=== PATIENT | female | born 1965 | race Caucasian/White ===

== ENCOUNTER → 2021-01-20 | Outpatient (CLI) | payer MEDICARE, OTHER ==
[2021-01-20 13:10] VITALS: BP 122/78; PULSE 55; RESP 16; TEMP 97.6
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
== END ==
LOC: PNWHC3 12:52
PROVIDERS: ATTEND Anesthesiology
DX: M54.5 Low back pain (principal); H91.90 Unspecified hearing loss, unspecified ear
CPT/HCPCS: 99202

== ENCOUNTER 2021-02-05 10:21 | Day surgery (SDC) | payer MEDICARE, OTHER ==
[2021-02-04 12:04] VITALS: BMI 33.1
[~2021-02-05 10:21] MED LIST: LACTATED RINGERS 1,000 ML IV SCH
[2021-02-05 10:54] VITALS: RESP 16; TEMP 96.9
[2021-02-05] MEDS ORDERED: methylPREDNISolone ACETATE 40 MG/ML 1 ML VIAL ONE (11:41)
[2021-02-05] MEDS ORDERED: fentaNYL (PF) 50 MCG/ML 2 ML AMP ONE (11:41)
[2021-02-05] MEDS ORDERED: ROPIVACAINE 5MG/ML 20ML VIAL ONE (11:41)
[2021-02-05] MEDS ORDERED: MIDAZOLAM 2 MG/2 ML VIAL ONE (11:41)
--- NOTE | 2021-02-05 12:03 | P.PCN ---
Date of Procedure: 02/05/21 Procedure(s) Performed: PREOPERATIVE DIAGNOSIS : 1- Lumbar spondylosis with Facet Arthropathy without myelopathy . 2- Lumber degenerative disc disease POSTOPERATIVE DIAGNOSIS: 1- Lumbar spondylosis with Facet Arthropathy without myelopathy . 2- Lumber degenerative disc disease PROCEDURE: Diagnostic bilateral L3 , L4 , and L5 medial branch block under fluoroscopy guidance(fluoroscopy images available in the radiology Department ) ( To target the facet joint between bilateral L4-5 , and L5-S1 ) ANESTHESI: monitered anesthesia care as per anesthesia department. EBL: Minimal COMPLICATION: None PROCEDURE INDICATION: Chronic low back pain secondary to Facet arthropathy unresponsive to conservative treatment. PROCEDURE DESCRIPTION: the patient was seen and identified in the preop holding area , risks and benefits and possible complications of the procedure and alternative were discussed with the patient, and the patient agreed to proceed with the procedure and signed the consent and vital signs monitored during the procedure and fluoroscopy was used to maximize the benefit and accuracy of the needle placement, and sedation was given to decrease patient anxiety, patient was taken to the procedure room and placed in prone position vital signs monitored in the back prepped with chlorhexidine X3 then under strict sterile technique using a right oblique fluoroscopy ,the junction of the transverse process and the superior articulating process of the right L3 , L4 , and L5 vertebra which corresponding to the fluoroscopy image of the eye of the Rehan dog on the block side for the medial branches and subsequently , after local infiltration of skin and subcu tissuies with Ropivacaine 0.5 % , one mL at each level ,then 22-gauge Quincke-type needles , 3 needle was used , each one of them placed at the junction of the base of the transverse process and the superior articular process at the appropriate level, and the needle was advanced until the periosteum contacted, needle placement confirmed with AP oblique and lateral view and after appropriate needle placement confirmed, and after negative aspiration for heme and CSF and there was no paresthesia 1-1/2 mL of Ropivacaine 0.5% mixed with 20 mg Depo-Medrol , then half mL injected at each level after negative aspiration the needle subsequently removed and the same procedure repeated for the left side at left side at L3 , L4 and L5 levels. At the end of the procedure and the needles removed and a bandage applied after the skin was cleaned the cleaning solution patient taken to recovery room in stable condition and monitors in the recovery room for 20-30 minutes and discharged home in stable condition after discharge criteria met and patient will follow up with the pain clinic in 2-4 weeks
[2021-02-05] MEDS ORDERED: IV FLUID CONTINUATION 500 ML IV ONE (12:07)
[2021-02-05 12:27] VITALS: BP 116/61; PULSE 61
--- NOTE | 2021-02-05 12:47 | FL ---
EXAMINATION TYPE: FL guided pain mgmt statistic DATE OF EXAM: 02/05/2021 CLINICAL HISTORY: Low back pain. TECHNIQUE: Fluoroscopy. COMPARISON: None. FINDINGS: Fluoroscopic guidance was provided during pain relief procedure performed by Dr. Sneed . A total of 11 seconds of fluoroscopic time was utilized during the procedure and 4 spot images are acquired. Images acquired shows needle localization at several levels in the lumbar spine. IMPRESSION: As Above.
== END 2021-02-05 12:40 | disposition home or self-care (01) ==
LOC: ORPAIN 10:21
PROVIDERS: ATTEND Specialist
DX: G89.29 Other chronic pain (principal); M47.816 Spondylosis without myelopathy or radiculopathy, lumbar region; M51.36 Other intervertebral disc degeneration, lumbar region; H91.90 Unspecified hearing loss, unspecified ear; I10 Essential (primary) hypertension; E78.5 Hyperlipidemia, unspecified; Z79.82 Long term (current) use of aspirin; Z79.899 Other long term (current) drug therapy
CPT/HCPCS: 64493; 64494; J2250; J1030; J3010; J2795

== ENCOUNTER 2021-02-26 11:06 | Day surgery (SDC) | payer MEDICARE, OTHER ==
[2021-02-25 12:11] VITALS: BMI 32.8
[2021-02-26 11:27] VITALS: TEMP 97
[2021-02-26] MEDS ORDERED: LACTATED RINGERS 1,000 ML IV ONE (11:32)
[2021-02-26] MEDS ORDERED: fentaNYL (PF) 50 MCG/ML 2 ML AMP ONE (11:52)
[2021-02-26] MEDS ORDERED: IOPAMIDOL M200 10 ML VIAL ONE (11:52)
[2021-02-26] MEDS ORDERED: ROPIVACAINE 5MG/ML 20ML VIAL ONE (11:52)
[2021-02-26] MEDS ORDERED: MIDAZOLAM 2 MG/2 ML VIAL ONE (11:52)
[2021-02-26] MEDS ORDERED: TRIAMCINOLONE ACETONIDE 40 MG/ML 1 ML VIAL ONE (11:52)
--- NOTE | 2021-02-26 12:09 | P.PCN ---
Date of Procedure: 02/26/21 Description of Procedure: PREOPERATIVE DIAGNOSIS : 1- Lumbar spondylosis with Facet Arthropathy without myelopathy . 2- Lumber degenerative disc disease POSTOPERATIVE DIAGNOSIS: 1- Lumbar spondylosis with Facet Arthropathy without myelopathy . 2- Lumber degenerative disc disease PROCEDURE: #2 Diagnostic bilateral L3 , L4 , and L5 medial branch block under fluoroscopy guidance(fluoroscopy images available in the radiology Department ) ( To target the facet joint between bilateral L4-5 , and L5-S1 ) ANESTHESI: monitered anesthesia care as per anesthesia department. EBL: Minimal COMPLICATION: None PROCEDURE INDICATION: Chronic low back pain secondary to Facet arthropathy unresponsive to conservative treatment. PROCEDURE DESCRIPTION: the patient was seen and identified in the preop holding area , risks and benefits and possible complications of the procedure and alternative were discussed with the patient, and the patient agreed to proceed with the procedure and signed the consent and vital signs monitored during the procedure and fluoroscopy was used to maximize the benefit and accuracy of the needle placement, and sedation was given to decrease patient anxiety, patient was taken to the procedure room and placed in prone position vital signs monitored in the back prepped with chlorhexidine X3 then under strict sterile technique using a right oblique fluoroscopy ,the junction of the transverse process and the superior articulating process of the right L3 , L4 , and L5 vertebra which corresponding to the fluoroscopy image of the eye of the Rehan dog on the block side for the medial branches and subsequently , after local infiltration of skin and subcu tissuies with lidocaine 1 % , one mL at each level ,then 25-gauge Quincke-type needles , 3 needle was used , each one of them placed at the junction of the base of the transverse process and the superior articular process at the appropriate level, and the needle was advanced until the periosteum contacted, needle placement confirmed with AP oblique and lateral view and after appropriate needle placement confirmed, and after negative aspiration for heme and CSF and there was no paresthesia 1-1/2 mL of Ropivacaine 0.5% mixed with 20 mg Depo-Medrol , then half mL injected at each level after negative aspiration the needle subsequently removed and the same procedure repeated for the left side at left side at L3 , L4 and L5 levels. At the end of the procedure and the needles removed and a bandage applied after the skin was cleaned the cleaning solution patient taken to recovery room in stable condition and monitors in the recovery room for 20-30 minutes and discharged home in stable condition after discharge criteria met and patient will follow up with the pain clinic in 2-4 weeks
[2021-02-26] MEDS ORDERED: IV FLUID CONTINUATION 1,000 ML IV ONE (12:13)
[2021-02-26 12:31] VITALS: BP 102/55; PULSE 50; RESP 16
--- NOTE | 2021-02-26 12:36 | FL ---
Fluoroscopy HISTORY: Pain 9 seconds fluoroscopy time supplied to the referring clinician. 3 intraoperative C-arm images docume nt the procedure. See dictated report from anesthesia.
== END 2021-02-26 12:55 | disposition home or self-care (01) ==
LOC: ORPAIN 11:06
PROVIDERS: ATTEND Anesthesiology
DX: G89.29 Other chronic pain (principal); M47.816 Spondylosis without myelopathy or radiculopathy, lumbar region; Z79.82 Long term (current) use of aspirin; Z79.899 Other long term (current) drug therapy
CPT/HCPCS: 64493; 64494; J2250; J3301; J3010; Q9966; J2795

== ENCOUNTER → 2021-03-17 | Outpatient (CLI) | payer MEDICARE, OTHER ==
[2021-03-17 10:58] VITALS: BP 111/64; PULSE 60; RESP 16; TEMP 97.6
--- NOTE | 2021-03-17 11:12 | P.PN ---
Subjective Progress Note Date: 03/17/21 This is a 56-year-old lady with history of axial chronic low back pain with no radiation to the lower extremities and no paresthesia in the lower extremities. The patient received 2 lumbar medial branch diagnostic blocks which gave her 50% of pain relief however she felt this improvement one week after the procedure and not immediately after. Her pain is mostly in the lumbar sacral junction bilaterally. Patient denies new-onset weakness, bowel/bladder incontinence, or any other signs or symptoms of cauda equina syndrome. There are no signs of acute intoxication, and no indications of medication diversion or overuse. Of note the interview was conducted through an official court interpreter due to the patient's history of difficulty hearing. In addition to above, 13-point review of systems is also negative for chest pain, shortness of breath, changes in vision, changes in hearing, new onset weakness, abdominal pain, diarrhea, extreme fatigue, malaise, fever, skin changes, homicidal or suicidal ideation, or bowel or bladder incontinence. Vital Signs: Reviewed in EMR Gen: AAOx3, NAD HEENT: PERRLA,hearing grossly normal Pulm: resp unlabored Neck: supple, trachea midline Neuro exam of the lower extremities: Normal muscle strength bilaterally Straight leg raising test: Tulio's test: Negative bilaterally Range of motion of the lumbar spine: Facet loading test: Significant tenderness around the sacroiliac joints bilaterally Neuro: CN II-XII grossly intact, Imaging: Reviewed in EMR/chart Assessment: Lumbar spondylosis without myelopathy Possible bilateral sacroiliitis Deafness Plan: 1. Explanation: When patients on opioids, opioid and psychological risk scores were reviewed. Diagnoses, prognoses, and multiple treatment options including but not limited to physical therapy, interventional therapies, adjuvant medical therapies, narcotic medication therapies, and surgery were discussed with the patient and all questions were answered to the patient's satisfaction. 2. Opioid agreement:When patients are prescribed opoids through our clinic, o pioid agreement is signed with the patient and the patient is warned not to use opioids while driving or before driving and not to combine opioids with benzodiazepines or alcohol. 3. Counseling: When patient is smoking or obese, the patient was counseled extensively on SMOKING CESSATION, BODY MASS INDEX, EXERCISE. Specifically, the patient was instructed regarding the importance of smoking cessation, obesity, and exercise in the context of both chronic pain and overall health. 4. Procedures: The patient failed to respond to the diagnostic lumbar medial branch block. Eventhough that Tulio's test is negative bilaterally however the significant tenderness at the sacroiliac joints makes proceeding with a diagnostic sacroiliac joint steroid injection feasible. 5. Consultations: None 6. Investigations: None 7. Medications: None prescribed 8. Disposition: Proceed with the above-mentioned procedure as soon as possible 9. Maps were reviewed and were appropriate. Objective - Vital Signs Vital signs: Vital Signs Temp 97.6 F 03/17/21 10:55 Pulse 60 03/17/21 10:55 Resp 16 03/17/21 10:55 BP 111/64 03/17/21 10:55 Pulse Ox 96 03/17/21 10:55
== END | disposition home or self-care (01) ==
LOC: PNWHC3 10:07
PROVIDERS: ATTEND Anesthesiology
DX: M47.896 Other spondylosis, lumbar region (principal); H91.90 Unspecified hearing loss, unspecified ear
CPT/HCPCS: 99211

== ENCOUNTER 2021-04-15 10:04 | Day surgery (SDC) | payer MEDICARE, OTHER ==
[2021-04-12 15:04] VITALS: BMI 31.8
[2021-04-15 10:28] VITALS: RESP 16; TEMP 97.2
[2021-04-15] MEDS ORDERED: LACTATED RINGERS 1,000 ML IV ONE (10:35)
[2021-04-15] MEDS ORDERED: ROPIVACAINE 5MG/ML 20ML VIAL ONE (10:40)
[2021-04-15] MEDS ORDERED: MIDAZOLAM 2 MG/2 ML VIAL ONE (10:40)
[2021-04-15] MEDS ORDERED: IOPAMIDOL M200 10 ML VIAL ONE (10:40)
[2021-04-15] MEDS ORDERED: fentaNYL (PF) 50 MCG/ML 2 ML AMP ONE (10:40)
[2021-04-15] MEDS ORDERED: TRIAMCINOLONE ACETONIDE 40 MG/ML 1 ML VIAL ONE (10:40)
[2021-04-15] MEDS ORDERED: LIDOCAINE 1% INJ 10MG/ML (20 ML MDV) ONE (10:40)
--- NOTE | 2021-04-15 10:52 | P.PCN ---
Date of Procedure: 04/15/21 Description of Procedure: Preoperative diagnoses: bilateral sacroilitis Postoperative diagnoses: bilateral sacroilitis. Procedure: bilateral sacroiliac joint steroid injection under fluoroscopic guidance. Surgeon: Sky Goldberg MD Anesthesia: [2 mL of 1% lidocaine and moderate sedation per hospital guidelines], sedation time 8 min Fluoroscopy was used for the procedure and fluoroscopic images were saved to the radiology portion of the patient's chart. EBL: None Procedure indication: The patient had a history of severe chronic low back pain, diagnosed with sacroiliitis unresponsive to conservative treatment. Procedure description: The patient was seen and identified in the preoperative holding area, risks and benefits and alternative of the procedure and possible complications discussed with the patient, and patient agreed with the preceding, patient signed the consent, an IV was started, and vital signs were monitored and were stable throughout the procedure, patient was placed in the prone position on table and the lumbosacral area was prepped and draped with a sterile fashion, vital signs were closely monitored during the procedure, the fluoroscopy camera was placed in the contralateral oblique view on the bilateral sacroiliac joint and the lower part of the joint was identified . Then the skin and subcutaneous tissue was anesthetized using 2 mL of 1% lidocaine then a 22- gauge Quincke-type spinal needle advanced slowly under fluoroscopy and placed in the posterior and inferior border of the right sacroiliac joint, placement confirmed with AP and lateral view, and after appropriate needle placement confirmed and after negative aspiration for heme, 1 mL of Isovue 200 was injected revealing intra-articular spread. Then a solution consisting of 2 ml of ropivacaine 0.5% and 20 mg of Kenalog injected after negative aspiration, no paresthesia during the injection, no resistance to injection, and the needle was removed. The procedure was then repeated on the left side. Total of 40 mg of Kenalog was used for the procedure. Patient tolerated the procedure well without any complication. The patient was returned to supine position after the back was cleaned and a Band-Aid applied, the patient was transported to recovery room in stable condition and monitored for 30 minutes before being discharged home. The patient will follow up with the pain clinic in a few weeks
[2021-04-15] MEDS ORDERED: IV FLUID CONTINUATION 1,000 ML IV ONE (10:59)
[2021-04-15 11:16] VITALS: BP 105/61; PULSE 52
--- NOTE | 2021-04-15 13:02 | FL ---
EXAMINATION TYPE: FL guided pain mgmt statistic DATE OF EXAM: 04/15/2021 FLUOROSCOPY Fluoroscopy time of 8 seconds was used during bilateral SI joint injection. 2 image/s document/s the procedure.
== END 2021-04-15 11:44 | disposition home or self-care (01) ==
LOC: ORPAIN 10:04
PROVIDERS: ATTEND Anesthesiology
DX: G89.29 Other chronic pain (principal); M46.1 Sacroiliitis, not elsewhere classified; M54.5 Low back pain
CPT/HCPCS: J2250; J3301; J2001 ×2; J3010; Q9966; J2795; G0260

== ENCOUNTER → 2021-05-12 | Outpatient (CLI) | payer MEDICARE, OTHER ==
[2021-05-12 10:50] VITALS: BP 111/63; PULSE 58; RESP 18
--- NOTE | 2021-05-12 11:02 | P.PN ---
Subjective Progress Note Date: 05/12/21 Assessment this is a follow-up visit for this 56 years old female with a chronic history of severe low back pain, is diagnosed with lumbar spondylosis with lumbar facet arthropathy and bilateral sacroiliitis, history we have done bilateral medial branch block lumbar area she reported that she had 50% impro vement of her low back pain for short-term only, for this reason we did not do RFA of the medial branch, recently we have done, bilateral sacroiliac joint steroid injection she reported that she had only short-term benefit, continued to have severe axial low back pain which is interfered with her quality of life, interfering with activity of daily livings, patient tried physical therapy in the past without any significant improvement and she tried chiropractics without any significant improvement, he denies any motor or sensory deficit (the interview was conducted with the publication designer ,VIA video conference ) Objective - Vital Signs Vital signs: Vital Signs Temp Pulse 58 L 05/12/21 10:44 Resp 18 05/12/21 10:44 BP 111/63 05/12/21 10:44 Pulse Ox 97 05/12/21 10:44 Intake & Output 05/11/21 05/12/21 05/12/21 18:59 06:59 18:59 Weight 69.492 kg - Exam Physical Examinations : -Constitutiona : Cooperative , not in acute distress . -HEENT : nech : supple , no Lymphadenopathy , normal thyroid size . : eyes : no ptosis , no icterus, no photophobia . - neurologic : Cranial nerve II to XII intact , no focal neurological deffecit . -psychatric : alert , oriented X 3 , appropriate affect , intact judgment and insight . -Lymphatic : no Lymphadenopathy . - musculoskeltal : Lumber spine moter stegnth lower extremities ,thigh and legs 5/5 Right side , 5/5 Left side deep tendon reflexes : normal Knee Jerk , normal ankle Jerk lumber facet Loading Test =positive Right , positive Left Range of motion of the lumbar spine Flexion 30 degrees, extension 10 degrees strait leg raising test = negative bilaterally Fabere test= negative bilaterally . Sever tenderness over the Sacroiliac joint on the Right , and Left sides Gaenslen test= positive right ,and positive left . Seated flexion test= positive right ,and positive Left . Distraction test= positive bilaterally Sacroiliac compression test= positive bilaterally Assessment and Plan Plan: Assessment and plan=1-Lumbar spondylosis with lumbar facet arthropathy without myelopathy. 2-bilateral sacroiliitis. 3-Lumbar degenerative disc disease. Patient had 50% improvement of low back pain after diagnostic medial branch block for this reason we did not proceed with RFA She Had short-term benefit from sacroiliac joint steroid injection, she could benefit from repeat sacroiliac joint steroid injection. - PQRS measures = - Patient's medications are documented in the chart. -Tobacco use is negative and counseling.Given. -Patient's has not received pneumococcal vaccine. -Advanced care planning discussed, patient not eligible. -Opiate contract not signed. -Pain positive and follow-up visit/procedure is scheduled. -Patient's blood pressure measured [ 111/63] , and documented in the record ,and patient will follow up with the primary care. -Patient's weight was measured and body mass index [ 27 ] above the,normal limits and counseling was done. and patient instructed to follow-up with the primary care physician. -Patient was not identified as an unhealthy alcohol user Time with Patient: Less than 30
== END | disposition home or self-care (01) ==
LOC: PNWHC3 10:09
PROVIDERS: ATTEND Specialist
DX: M47.896 Other spondylosis, lumbar region (principal); M46.96 Unspecified inflammatory spondylopathy, lumbar region; M51.36 Other intervertebral disc degeneration, lumbar region; M46.1 Sacroiliitis, not elsewhere classified
CPT/HCPCS: 99211

== ENCOUNTER 2021-06-17 11:30 | Day surgery (SDC) | payer MEDICARE, OTHER ==
[2021-06-16 11:30] VITALS: BMI 31.8
[2021-06-17 12:10] VITALS: TEMP 97
[2021-06-17] MEDS: LACTATED RINGERS 1,000 ML IV SCH ×2 (12:18→12:36)
[2021-06-17] MEDS ORDERED: fentaNYL (PF) 50 MCG/ML 2 ML AMP ONE (12:36)
[2021-06-17] MEDS ORDERED: MIDAZOLAM 2 MG/2 ML VIAL ONE (12:36)
[2021-06-17] MEDS ORDERED: ROPIVACAINE 5MG/ML 20ML VIAL ONE (12:36)
[2021-06-17] MEDS ORDERED: methylPREDNISolone ACETATE 40 MG/ML 1 ML VIAL ONE (12:36)
--- NOTE | 2021-06-17 12:48 | P.PCN ---
Date of Procedure: 06/17/21 Procedure(s) Performed: Procedure= bilateral sacroiliac joints steroid injection under fluoroscopy guidance (fluoroscopy image stored on file in the radiology Department ) Preoperative diagnosis= 1-sacroiliitis 2-lumbar degenerative disc disease 3- lumbar facet arthropathy Postoperative diagnosis=Same as preop Diagnosis . Complication = none Condition= stable Anesthesia= moderate sedation with intravenous Versed 2 mg , and fentanyl 50 micrograms . Indication for the procedure= patient complaining of low back pain , examination was positive for severe tenderness over the sacroiliac joints bilaterally and patient diagnosed with sacroiliitis, for this reason ,she was good candidate for sacroiliac joint steroid injection. Description of the procedure= procedure risk and benefits discussed with the patient, including but not limited, risk of infection and bleeding, and ALLERGIC reaction to the medication and not complete pain relief and patient agreed with the preceding patient taken to the operating room, placed in prone position or standard monitors applied to the patient then after induction of anesthesia back prepped with chlorhexidine 3 times , Then under strict sterile technique, first I did the right sacroiliac joint the which was identified under fluoroscopy guidance been local infiltration of the skin and subcu interstitial with lidocaine 1% then 22-gauge Quincke Needle advanced slowly under fluoroscopy and placed in the right sacroiliac joint needle placement confirmed with AP and oblique and lateral view and after appropriate needle placement confirmed and after negative aspiration, or heme , then Ropivacaine 0.5% 4 mL, and 40 mg of Depo-Medrol mixed together and injected in the right sacroiliac joint after negative aspiration patient tolerated the procedure well without any complication. Then the left sacroiliac joint steroid injection done under strict sterile technique local infiltration of the skin and subcu interstitial at the location of the left sacroiliac joint then a 22-gauge Quincke Needle advanced slowly under fluoroscopy time placed in the left sacroiliac joint, needle placement confirmed with AP and oblique and lateral view then after appropriate needle placement confirmed and after negative aspiration 0.5% Ropivacaine 4 mL and 40 m g of Depo-Medrol injected in the left sacroiliac joint after negative aspiration patient tolerated the procedure well that any complications and she will follow up in clinic 3 weeks
[2021-06-17] MEDS ORDERED: LACTATED RINGERS 1,000 ML IV ONE (12:59)
[2021-06-17] MEDS ORDERED: IV FLUID CONTINUATION 750 ML IV ONE (12:59)
--- NOTE | 2021-06-17 12:59 | FL ---
Fluoroscopy History: Bilateral SC Injection OCCIPITAL NEURALGIA BILATERAL SC INJECTION [address] MARROQUIN. 3 IMAGES SENT.
[2021-06-17 13:14] VITALS: BP 118/74; PULSE 51; RESP 14
== END 2021-06-17 13:24 | disposition home or self-care (01) ==
LOC: ORPAIN 11:30
PROVIDERS: ATTEND Specialist
DX: M46.1 Sacroiliitis, not elsewhere classified (principal); M51.36 Other intervertebral disc degeneration, lumbar region; M47.816 Spondylosis without myelopathy or radiculopathy, lumbar region; Z90.710 Acquired absence of both cervix and uterus
CPT/HCPCS: J2250; J1030; J3010; J2795; G0260; 99152

== ENCOUNTER → 2021-07-01 | Outpatient (CLI) | payer MEDICARE, OTHER ==
--- NOTE | 2021-07-01 10:40 | P.PAINPG ---
Subjective Progress Note Date: 07/01/21 Principal diagnosis: Lumbar back pain Ms. Han is a 56 year old pleasant female patient came to [facility] pain management clinic for follow-up. Patient described pain started many years ago. Patient had bilateral SI joint injection 2 last one was on 06/17/2021. Which helped her 60-70% pain relief for 10 days. With the help of procedure patient can able to perform her activities better. Patient described pain as aching, sharp, throbbing, type of pain. Patient rated pain 7 out of 10 in severity. Which may very her pain level from 4-8 out of 10 in severity. Lumbar back pain is not radiating to her lower extremities. Pain increases with activities, and standing, walking, sitting, bending forward, and lifting. Pain decreases with [interventional procedures. Patient tried physical therapy for lumbar back pain H was not helpful in the past. Overall patient activities- stable. Intervention procedures helping to some extent. Because of the pain patient is feeling lack of sleep and interest and energy sometimes. Denied any bowel or bladder problems. Patient denies any adverse effects to medications. Patient denied any suicidal or homicidal ideations intent or plan. At this time patient also denies any auditory or visual hallucinations. There are no signs of narcotic diversion/misuse/overuse and no new-onset weakness, bowel/bladder incontinence, saddle anesthesia, or no red flag symptoms. 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 Sensation grossly intact Lower extremity: Normal strength, and decreased range of motion secondary to pain Lumbar spine: Paravertebral tenderness: positive Lumbar facet load test : positive Sacroiliac joint tenderness: Positive Thigh thrust test: Positive SI joint compression test: Positive Fabere test: Positive Multiple trigger points positive in lumbar area.] - Constitutional Constitutional Comment(s): 13 point review of symptoms negative except as mentioned in the history of present illness. Assessment and Plan Assessment: Lumbar spondylosis without myelopathy Myofascial pain syndrome Secondary to joint dysfunction History of marijuana use Plan: #1 Diagnoses, prognosis, and multiple treatment options including but not limited to physical therapy, interventional therapy, adjunct medication therapy, narcotic medication, and surgical options were discussed with the patient. And all questions were answered to the patient's satisfaction. #2 treatment plan agreement : Patient was thoroughly discussed regarding the treatment options, alternatives, and importance of exercises as tolerated. Patient clearly understood. #3 Patient was counseled on importance of regular exercise. Including diogenes chi, aerobic exercises as tolerated. Which helps for chronic pain, and overall well- being. Patient also counseled regarding importance of weight control rolling chronic pain, and overall other health issues. By altering diet habits, minimizing sugar intake, and processed foods helps in minimizing Inflammation. Also discussed with the patient regarding intermittent fasting. Patient counseled regarding smoking associated with chronic pain, worsening inflammation, and smoking effects on liver, and medication metabolism. And encouraged to stop smoking. #4 investigations: MAPS- reviewed , urine drug test- not done #5 diagnostic tests: None #6 consultation : None # 7 interventional procedures: Bilateral lumbar L4-L5, and L5-S1 medial branch block . Procedure, complications, alternatives discussed with the patient. #8 medications None from the pain clinic #9 morphine milligrams equivalents dose ( MME) per day: 0 from the pain clinic. # 10 : Patient recommended to try percussion massage device #11 disposition: scheduled to follow up with pain clinic in 6-8 weeks duration. Time with Patient: Less than 30 PQRS Measure Charge Sheet Measure #130: Documentation of Current Meds in Medical Chart: Patient's medications documented in chart Measure #226: Tobacco Use: Screen & Cessation Intervention: Pt screened for tobacco use AND intervention given Measure #111: Pneumonia Vaccination: Pneumococcal vaccine NOT administered or previously given Measure #47: Advance Care Plan: Advance care planning discussed & documented, pt chose/unable to give Measure #412: Opioid Treatment Agreement: No documentation of signed opioid treatment agreement Measure #408: Opioid Therapy Follow-up Evaluation: Patient had NO f/u eval minimum every 3 months during opioid therapy Measure #317: Preventitive Care & Scrn High Bld Press & F/U: Normal blood pressure, f/u not required Measure #128: Body Mass Index (BMI) Screening & Follow-up: BMI documented ABOVE normal parameters - f/u documented Measure #131: Pain Assessment & Follow-up: Pain positive & plan documented Measure #431: Unhealthy Alcohol Use Preventative Care & Scrn: Patient not identified as an unhealthy alcohol user PQRS Narrative: Hx Alcohol Use (MH) Yes Home Medications: Ambulatory Orders Aspirin [Adult Low Dose Aspirin EC] 81 mg PO DAILY 01/20/21 Atorvastatin [Lipitor] 20 mg PO HS 01/20/21 Cetirizine HCl 10 mg PO DAILY 01/20/21 Escitalopram [Lexapro] 20 mg PO HS 01/20/21 QUEtiapine [SEROquel] 75 mg PO HS 01/20/21 busPIRone HCL [Buspar] 30 mg PO BID 01/20/21 traZODone HCL 100 mg PO HS 01/20/21 Estradiol 0.5 mg PO DAILY 02/25/21 Controlled Substance Measures - Controlled Substance Measures Is patient prescribed a controlled substance at discharge?: No
[2021-07-01 11:51] VITALS: BP 107/54; PULSE 59; RESP 18; TEMP 97.9
== END | disposition home or self-care (01) ==
LOC: PNWHC3 10:03
DX: M47.816 Spondylosis without myelopathy or radiculopathy, lumbar region (principal); M79.18 Myalgia, other site
CPT/HCPCS: 99211

== ENCOUNTER → 2021-08-17 | Day surgery (SDC) | payer MEDICARE, OTHER ==
[2021-08-10 11:59] VITALS: BMI 31.8
[~2021-08-17] MED LIST changes: +IV FLUID CONTINUATION 1,000 ML IV ONE; +LIDOCAINE 1% (10MG/ML) FOR IV START INTRADERMA ONE; +MIDAZOLAM 2 MG/2 ML VIAL ONE; +ROPIVACAINE 5MG/ML 20ML VIAL ONE; +TRIAMCINOLONE ACETONIDE 40 MG/ML 1 ML VIAL ONE; +fentaNYL (PF) 50 MCG/ML 2 ML AMP ONE
[2021-08-17 11:58] VITALS: RESP 16; TEMP 96.8
--- NOTE | 2021-08-17 12:27 | P.PCN ---
Date of Procedure: 08/17/21 Description of Procedure: Pre- and Post-operative Diagnosis: Lumbar facet arthropathy, and lumbar spondylosis without myelopathy. Procedure: #1 Diagnostic Medial Branch Block at bilateral Lumbar 4/5 and #1 diagnostic dorsal ramus block at Lumbar 5/ sacral ala levels (total 4 levels) Surgeon: Tiffanie Yepez Anesthesia: Local: 1% Lidocaine, IV sedation : Versed and fentanyl. Complications: None EBL: None Specimen removed: None Fluoroscopic image: Saved to patient electronic medical records. Indications for Procedure: The patient is well known to pain clinic for his chronic low back pain management. The lumbar facet loading test was positive with a clinical diagnosis of lumbar facet arthropathy. Failed with conservative therapy. Came here for interventional help for better pain relief. Procedure and Findings: The patient was seen and examined. The written informed consent was obtained after explaining the risks, benefits and alternatives of the procedure to the patient. The patient was brought to the procedure room and was placed in the prone position on the operating table table. A pillow was placed under the abdomen to reduce lumbar lordosis. Standard anesthesia monitoring was done through out the procedure. The skin preparation was done with ChloraPrep, and draping was done in usual sterile fashion. Sterile technique was observed throughout the procedure. Under fluoroscopic guidance, right the Lumbar 4, 5 and Sacral ala levels were identified in the AP view. For lumbar L4, and L5 levels the targeting area of superior articular process, and close to the most medial and superior aspect of transverse process identified, marked. 1ml of 1% Lidocaine was used with a 25 gauge needle to achieve adequate local anesthesia of the skin and subcutaneous tissue at each level. A 22 gauge 3.5 inch spinal needle was placed and advanced targeting area which was close to the most medial and superior aspect of the transverse process. For Lumbar 5/ sacral ala level, fluoroscope was used in the anteroposterior view, and the needle tip was placed at the superior and most medial part of sacral ala close to the superior articular process. A bony contact was obtained and needle tip position was confirmed at anteroposterior view. No paresthesia was noted. A negative aspiration was confirmed. 1 ml solution per level was injected, the block solution containing 5 ml of 0.5% ropivacaine preservative-free solution mixed with 40 MG of Kenalog. The needles were removed intact. Entire procedure repeated on the left side. Lumbar area was cleaned and bandages were applied. Disposition : The patient tolerated the procedure very well. The patient was transferred to the recovery room and remained stable until discharged home. The patient was given detailed discharge instructions for infection, bleeding, and increased pain at the injection site, and was advised to seek immediate medical attention should significant side effects develop. The patient will be scheduled with Pain Clinic within 4 weeks for repeat procedure if it's helpful.
--- NOTE | 2021-08-17 12:50 | FL ---
EXAMINATION TYPE: FL guided pain mgmt statistic DATE OF EXAM: 08/17/2021 FLUOROSCOPY Fluoroscopy time of 5 seconds was used during bilateral lumbar facet block. 2 image/s document/s the procedure.
[2021-08-17 12:51] VITALS: BP 117/74; PULSE 56
== END ==
LOC: ORPAIN 11:06
DX: G89.29 Other chronic pain (principal); M47.816 Spondylosis without myelopathy or radiculopathy, lumbar region; Z98.890 Other specified postprocedural states; Z78.0 Asymptomatic menopausal state

== ENCOUNTER → 2021-09-13 | Outpatient (CLI) | payer MEDICARE, OTHER ==
[2021-09-13 11:05] VITALS: BP 108/55; PULSE 57; RESP 18
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
== END | disposition home or self-care (01) ==
LOC: PNWHC3 09:29
PROVIDERS: ATTEND Physician Assistant Medical
DX: M47.896 Other spondylosis, lumbar region (principal)
CPT/HCPCS: 99211

== ENCOUNTER → 2021-10-21 | Outpatient (CLI) | payer MEDICARE, OTHER ==
--- NOTE | 2021-10-21 11:43 | P.PN ---
Subjective Progress Note Date: 10/21/21 Principal diagnosis: A 56 yr old female with a [employer] a history of severe and chronic low back pain secondary to lumbar degenerative disc diseases and lumbar spondylosis with facet arthropathy presents today for evaluation status post facet block the medial branches bilateral L4-L5, L5-S1 #2. Patient states she had 50% pain relief for 2 days status post procedure. Pain level is currently at 5 out of 10, pressure-type sensation in the lower lumbar spine with radiation of tightness, soreness towards the upper aspect of the left hip. Pain is provoked by bending, lifting and standing for periods of 30 minutes or more. Pain is alleviated with medications, injections, physical therapy in May 2021 which was ineffective, chiropractic treatments in the past, stretching at home, repositioning and rest. Interventional pain procedures completed include bilateral SI joint injections 2, facet blocks of the medial branches bilateral L4-L5, L5-S1 2. Patient is currently on Motrin OTC Patient denies any side effects of the medication(s), denies excessive drow siness or sleepiness, denies suicidal ideation and reports that the current pain medication is helping to control the pain and improve activities of daily living. Patient denies any motor or sensory deficits. Patient denies any fever or night sweats, denies any change in the bowel movements or urination. Physical Examination: -Constitutional: Cooperative. Not in acute distress . -HEENT: Neck is supple. No lymphadenopathy. No thyromegaly. Normal thyroid size. Eyes: No ptosis , no icterus, no photophobia. ENT: No auditory deficits. Normal oropharynx. No Thrush. - Respiratory: Chest clear to auscultations bilaterally. No wheezing. No rhonchi. - Cardiovascular: Regular rate and rhythm. S1 / S2 , no S3 , no S4. - Gastrointestinal: Abdomen soft no tenderness. Bowel sounds positive in all four quadrants. No organomegaly. - Genitourinary: Deferred. - Neurologic: Cranial nerve II to XII intact. No focal neurological deficits. - Psychatric: Alert & oriented x 3. Matching mood & appropriate affect. Judgment and insight intact. - Lymphatic: No Lymphadenopathy. - Musculoskeletal: Cervical spine: Muscle bulk/ tone/ strength in the bilateral upper extremities normal. Facet loading test cervical area positive. Lumbar spine: Motor bulk/ tone/ strength lower extremities , thigh and legs : 5/5 Deep tendon reflexes : Normal Knee Jerk. Normal Ankle Jerk . Vertebral body tenderness to palpation over Lumbar Facet Loading Test positive over bilateral L4-L5, L5-S1 with jump reflex Straight Leg Raise: positive at 30 degrees right side/ left side Gaenslen's Test positive Sacral spine : Severe tenderness over the Sacroiliac joint: right side / left side Range of motion: Flexion of the lumbar spine <60 degrees Range of motion: Extension of the lumbar spine <20 degrees Gaenslen's Test positive Jaiden test: positive right side / left side Assessment and plan: Chronic low back pain secondary to lumbar degenerative disc disease , lumbar spondylosis with facet arthropathy without myelopathy Recommendation of bilateral RFA of the L4-L5, L5-S1. Admits to aspirin 81 mg use. Denies medical history of diabetes mellitus. Risks, benefits of procedure discussed and patient verbalized und erstanding with software consultant available via video. All patient questions answered MAPS reviewed and it was appropriate. I have spent 31 minutes on patient care today. Dr Sneed was available by phone for the evaluation of this patient. The time was used to review the medical records including relevant urine studies and Prescription history (MAPs), review of the available imaging, evaluation and examination of the patient, coordination of care with the medical staff and if applicable referring physicians, as well as creation of the medical record Objective - Vital Signs Vital signs: Intake & Output 10/20/21 10/21/21 10/21/21 18:59 06:59 18:59 Weight 95.254 kg PQRS Measure Charge Sheet PQRS Narrative: Hx Alcohol Use (MH) Yes Home Medications: Ambulatory Orders Aspirin [Adult Low Dose Aspirin EC] 81 mg PO DAILY 01/20/21 Atorvastatin [Lipitor] 20 mg PO HS 01/20/21 Cetirizine HCl 10 mg PO DAILY 01/20/21 Escitalopram [Lexapro] 20 mg PO HS 01/20/21 QUEtiapine [SEROquel] 75 mg PO HS 01/20/21 busPIRone HCL [Buspar] 30 mg PO BID 01/20/21 traZODone HCL 100 mg PO HS 01/20/21 Estradiol 0.5 mg PO DAILY 02/25/21
[2021-10-21 14:52] VITALS: BP 109/69; PULSE 71; RESP 18; TEMP 97.6
== END | disposition home or self-care (01) ==
LOC: PNWHC3 10:37
PROVIDERS: ATTEND Physician Assistant Medical
DX: M47.896 Other spondylosis, lumbar region (principal); M51.36 Other intervertebral disc degeneration, lumbar region
CPT/HCPCS: 99211

== ENCOUNTER → 2021-12-02 | Day surgery (SDC) | payer MEDICARE, OTHER ==
[2021-12-01 13:02] VITALS: BMI 31.8
[~2021-12-02] MED LIST changes: -LIDOCAINE 1% (10MG/ML) FOR IV START INTRADERMA ONE
[2021-12-02 11:35] VITALS: RESP 18; TEMP 97
--- NOTE | 2021-12-02 13:21 | P.PCN ---
Date of Procedure: 12/02/21 Description of Procedure: Pre- and Post-operative Diagnosis: Lumbar facet arthropathy, and lumbar spon dylosis without myelopathy. Procedure: Bilateral L4-5 radiofrequency thermocoagulation of medial branch under fluoroscopic guidance Bilateral L5-S1 dorsal ramus radiofrequency thermocoagulation under fluoroscopic guidance Surgeon: Tiffanie Yepez Anesthesia: Local: 1% Lidocaine, IV sedation : Midazolam 2 mg, +1, and fentanyl 100 micrograms. Complications: None Estimated blood loss: None. Specimen removed: None Fluoroscopic image: Saved to patient electronic medical records. Indications for Procedure: The patient is well known to pain clinic for his chronic low back pain management. The lumbar facet loading test was positive with a clinical diagnosis of lumbar facet arthropathy. Patient had marked decrease in pain after the diagnostic medial branch procedure. Came here for radiofrequency ablation for longer pain relief. PROCEDURE DESCRIPTION: The patient was seen and identified in the preoperative area. Risks, benefits, complications, and alternatives were discussed with the patient. The patient agreed to proceed with the procedure and signed the consent. IV was started. Vital signs were stable. Patient was taken to the procedure room and timeout was completed. The patient was placed in the prone position on procedure table and a pillow was placed under the abdomen to reduce lumbar lordosis. The lumbosacral area was prepped and draped in the usual sterile fashion. Critical pause was taken. Vital signs were closely monitored during the procedure. The fluoroscopic camera was placed in the anteroposterior position to identify the junction of superior articular process and its corresponding injection with its transverse process of Right side L4, L5, S1, which were anesthetized with 1% lidocaine. We used 20-gauge 100-mm curved, sharp radiofrequency cannula with 10-mm active tip for the procedure. The first cannula was guided by fluoroscopy to the S1 superior articular process and its corresponding junction with its ala. The second cannula was guided by fluoroscopy into the L5 superior articular process and its corresponding junction with its transverse process and pedicle. The third cannula was guided by fluoroscopy into the L4 SAP and its corresponding junction with its transverse process and its pedicle. After confirmation of needle tip position on oblique view,, and lateral view each site underwent motor testing at 2 Hz and 0 to 2.5 volts, and there was good motor stimulation in the back and no radicular symptoms or paresthesias. After confirmation of motor testing, 0.5 mL of block solution injected at each site . Block solution contained 4 mL of 0.5% ropivacaine preservative free mixed with 40 MG of Kenalog. At this time, each site was ablated using continuous radiofrequency mode at 80 degrees Celsius for 90 seconds at each level. At the end of the procedure, each needle was retracted approximately 1 cm and the skin was infiltrated with 0.5% ropivacaine preservative free 1 ml at each site. Skin was cleansed and bandages were applied. Entire procedure repeated on the left side. Skin was cleansed and bandages were applied. Disposition : The patient tolerated the procedure very well. The patient was transferred to the recovery room and remained stable until discharged home. The patient was given detailed discharge instructions for infection, bleeding, and increased pain at the injection site, and was advised to seek immediate medical attention should significant side effects develop. The patient will be scheduled with Pain Clinic within 4 weeks.
--- NOTE | 2021-12-02 13:45 | FL ---
EXAMINATION TYPE: FL guided pain mgmt statistic DATE OF EXAM: 12/02/2021 FLUOROSCOPY Fluoroscopy time of 10 seconds was used during pain management procedure. No image/s document/s the procedure.
[2021-12-02 13:54] VITALS: BP 90/59; PULSE 72
== END ==
LOC: ORPAIN 11:06
DX: M47.896 Other spondylosis, lumbar region (principal); M47.816 Spondylosis without myelopathy or radiculopathy, lumbar region
CPT/HCPCS: 64635; 64636; J2250; J3301; J3010; J2795; 99152

== ENCOUNTER → 2021-12-30 | Outpatient (CLI) | payer MEDICARE, OTHER ==
[2021-12-30 10:16] VITALS: BP 113/59; PULSE 60; RESP 18
--- NOTE | 2021-12-30 10:26 | P.PN ---
Subjective Progress Note Date: 12/30/21 Principal diagnosis: A 56 yr old female with father at side with a history of severe and chronic low back pain secondary to lumbar degenerative disc diseases and lumbar spondylosis with facet arthropathy presents today for evaluation status post bilateral RFA L4-L5, L5-S1. She states she expressed 80% pain relief status post procedure. Pain level is currently at 3 out of 10 in intensity, localized to the lower aspect of the lumbar spine where it meets the tailbone, sharp, shooting in character to the lower extremities. Pain is provoked by walking for periods of 15 minutes or more. Pain is alleviated with cannabis use, injections, sacralization surgery in November 2021, home stretching regimen and rest. Interventional pain procedures completed include BL SI joint injections x 4. BL RFA L3-L5 Patient is currently on DENIES Patient denies any side effects of the medication(s), denies excessive drowsiness or sleepiness, denies suicidal ideation and reports that the current pain medication is helping to control the pain and improve activities of daily living. Patient denies any motor or sensory deficits. Patient denies any fever or night sweats, denies any change in the bowel movements or urination. Physical Examination: -Constitutional: Cooperative. Not in acute distress . -HEENT: Neck is supple. No lymphadenopathy. No thyromegaly. Normal thyroid size. Eyes: No ptosis , no icterus, no photophobia. ENT: No auditory deficits. Normal oropharynx. No Thrush. - Respiratory: Chest clear to auscultations bilaterally. No wheezing. No rhonchi. - Cardiovascular: Regular rate and rhythm. S1 / S2 , no S3 , no S4. - Gastrointestinal: Abdomen soft no tenderness. Bowel sounds positive in all four quadrants. No organomegaly. - Genitourinary: Deferred. - Neurologic: Cranial nerve II to XII intact. No focal neurological deficits. - Psychatric: Alert & oriented x 3. Matching mood & appropriate affect. Judgment and insight intact. - Lymphatic: No Lymphadenopathy. - Musculoskeletal: Cervical spine: Muscle bulk/ tone/ strength in the bilateral upper extremities normal. Facet loading test cervical area positive. Lumbar spine: Motor bulk/ tone/ strength lower extremities , thigh and legs : 5/5 Deep tendon reflexes : Normal Knee Jerk. Normal Ankle Jerk . Vertebral body tenderness to palpation over L5 Lumbar Facet Loading Test positive Straight Leg Raise: positive at 30 degrees right side/ left side Gaenslen's Test positive Sacral spine : Severe tenderness over the Sacroiliac joint: right side / left side Range of motion: Flexion of the lumbar spine <60 degrees Range of motion: Extension of the lumbar spine <20 degrees Gaenslen's Test positive Jaiden test: positive right side / left side Assessment and plan: Chronic low back pain secondary to lumbar degenerative disc disease , lumbar spondylosis with facet arthropathy without myelopathy Recommendation of LESI L5-S1. May be a series of injections, up to 3 within a six-month period, for optimal pain relief. Risks, benefits of procedure discussed and patient verbalized understanding. Denies anticoagulant use or medical history of diabetes. All patient questions answered I have spent 31 minutes on patient care today. Dr Sneed was available by phone for the evaluation of this patient. The time was used to review the medical records including relevant urine studies and Prescription history (MAPs), review of the available imaging, evaluation and examination of the patient, coordination of care with the medical staff and if applicable referring physicians, as well as creation of the medical record Objective - Vital Signs Vital signs: Vital Signs Temp Pulse 60 12/30/21 10:08 Resp 18 12/30/21 10:08 BP 113/59 12/30/21 10:08 Pulse Ox 95 12/30/21 10:08 Intake & Output 12/29/21 12/30/21 12/30/21 18:59 06:59 18:59 Weight 81.647 kg PQRS Measure Charge Sheet Mode of Arrival: Ambulatory - Pain Location Lower Back Non-Pharmacological Interventions: Home Exercise, Inactivity, Stretching Pharmacological Interventions: Block, Epidural PQRS Narrative: Blood Pressure 113/59 Pain Intensity [Lower Back] 3 Scale Used Numeric (1 - 10) Hx Alcohol Use (MH) Yes Home Medications: Ambulatory Orders Aspirin [Adult Low Dose Aspirin EC] 81 mg PO DAILY 01/20/21 Atorvastatin [Lipitor] 20 mg PO HS 01/20/21 Cetirizine HCl 10 mg PO DAILY 01/20/21 Escitalopram [Lexapro] 20 mg PO HS 01/20/21 QUEtiapine [SEROquel] 75 mg PO HS 01/20/21 busPIRone HCL [Buspar] 30 mg PO BID 01/20/21 traZODone HCL 100 mg PO HS 01/20/21 Estradiol 0.5 mg PO DAILY 02/25/21
== END ==
LOC: PNWHC3 09:37
PROVIDERS: ATTEND Specialist
DX: M47.816 Spondylosis without myelopathy or radiculopathy, lumbar region (principal); M51.36 Other intervertebral disc degeneration, lumbar region; G89.29 Other chronic pain
CPT/HCPCS: 99211

== ENCOUNTER 2022-02-10 11:06 | Day surgery (SDC) | payer MEDICARE, OTHER ==
[2022-02-10] MEDS ORDERED: LACTATED RINGERS 1,000 ML IV SCH (11:26)
[2022-02-10] MEDS ORDERED: LIDOCAINE 1% (10MG/ML) FOR IV START INTRADERMA PRN (11:26)
[2022-02-10 11:37] VITALS: RESP 16; TEMP 97.5
[2022-02-10] MEDS ORDERED: methylPREDNISolone ACETATE 80 MG/ML 1 ML VIAL ONE (12:10)
[2022-02-10] MEDS ORDERED: fentaNYL (PF) 50 MCG/ML 2 ML AMP ONE (12:10)
[2022-02-10] MEDS ORDERED: IOPAMIDOL M200 10 ML VIAL ONE (12:10)
[2022-02-10] MEDS ORDERED: MIDAZOLAM 2 MG/2 ML VIAL ONE (12:10)
--- NOTE | 2022-02-10 12:21 | P.PCN ---
Date of Procedure: 02/10/22 Procedure(s) Performed: PREOPERATIVE DIAGNOSIS: 1- Lumbar Degenerative Disc Diseases 2-Lumbar spondylosis with Facet arthropathy without myelopathy POSTOPERATIVE DIAGNOSIS: Same as preop diagnosis. PROCEDURE 1. Lumbar epidural steroid injection under fluoroscopic guidance at the L5-S1 level. (Fluoroscopy imaging was available in radiology department) 2. Lumbar epidurogram. ANESTHESIA: Local with 1% lidocaine 3 ml and , moderate sedation with intravenous Versed 2 mg ,and fentanyle 100 Mcg EBL: Minimal PROCEDURE INDICATION: The patient with low back pain and radiculitis symptoms unresponsive to conservative treatment. Fluoroscopy was used to optimize visuali zation of the needle placement and to maximize safety. PROCEDURE DESCRIPTION / TECHNIQUE: The patient was seen and identified in the preoperative area. Risks, benefits, complications including but not limited to infections ,bleeding ,allergic reaction to the medications ,nerve damage and not complete pain releife , and alternatives were discussed with the patient. The patient agreed to proceed with the procedure and signed the consent. IV was started, and vital signs were stable. Patient was taken to the OR and time out was completed. The patient was placed in the prone position on procedure table and a pillow was placed under the abdomen to reduce lumbar lordosis. The lumbosacral area was prepped and draped in the usual sterile fashion.ere closely monitored during the procedure. Conscious sedation was used during the procedure to decrease patients anxiety. Vital signs was monitered during the entire procedure. Using anterior-posterior fluoroscopy, the L5-S1 interlaminar space was identified and the skin over this site was marked and then infiltrated with 1% lidocaine subcutaneously. Subsequently, a 20-gauge Tuohy epidural needle was inserted and advanced toward the epidural space using the ``Loss of resistance technique and guided by AP and lateral fluoroscopy. The correct needle position in the epidural space was verified with the injection of 2 mL of the water jennifer uble contrast dye Isovue 200 contrast and observing an excellent epidurogram with the epidural spread of the dye, after negative aspiration for blood and CSF and in the absence of paresthesias. Again after negative aspiration, a 6 ml mixture containing 80 mg of Depo-medrol , and 2 ml of preservative free Normal Saline, and 2 ml of preservative free lidocaine 1% solution was injected and a washout of epidurogram was seen. Needle was withdrawn intact, skin was cleansed, and bandages were applied. COMPLICATIONS: None DISPOSITION / PLANS: The patient was placed in a supine position and transferred to the recovery area in a stable condition for observation. There was no evidence of lower extremity motor or sensory deficit after the procedure. Patient was discharged from the recovery room after meeting discharge criteria. Home discharge instructions were given to the patient by the staff. The patient was reexamined prior to discharge. The patient will schedule a follow up in the clinic in 2-4 weeks.
--- NOTE | 2022-02-10 12:33 | FL ---
Fluoroscopy INDICATION: Pain FINDINGS: Fluoroscopy time: 1 seconds. Images obtained: 1. IMPRESSIONS: 1. Documentation of fluoroscopy.
[2022-02-10 12:44] VITALS: BP 102/68; PULSE 66
[2022-02-10] MEDS ORDERED: IV FLUID CONTINUATION 1,000 ML IV ONE (12:44)
== END 2022-02-10 12:51 | disposition home or self-care (01) ==
LOC: ORPAIN 11:06
PROVIDERS: ATTEND Specialist
DX: M51.16 Intervertebral disc disorders with radiculopathy, lumbar region (principal); M47.26 Other spondylosis with radiculopathy, lumbar region
CPT/HCPCS: 62323; J2250; J1040; J3010; Q9966

== ENCOUNTER 2022-04-21 09:55 | Day surgery (SDC) | payer MEDICARE, OTHER ==
[2022-04-20 12:12] VITALS: BMI 32.5
[~2022-04-21 09:55] MED LIST changes: -IV FLUID CONTINUATION 1,000 ML IV ONE; +LIDOCAINE 1% (10MG/ML) FOR IV START INTRADERMA PRN; -MIDAZOLAM 2 MG/2 ML VIAL ONE; -ROPIVACAINE 5MG/ML 20ML VIAL ONE; -TRIAMCINOLONE ACETONIDE 40 MG/ML 1 ML VIAL ONE; -fentaNYL (PF) 50 MCG/ML 2 ML AMP ONE
[2022-04-21 10:43] VITALS: TEMP 97
[2022-04-21] MEDS ORDERED: MIDAZOLAM 2 MG/2 ML VIAL ONE (10:57)
[2022-04-21] MEDS ORDERED: fentaNYL (PF) 50 MCG/ML 2 ML AMP ONE (10:57)
[2022-04-21] MEDS ORDERED: methylPREDNISolone ACETATE 80 MG/ML 1 ML VIAL ONE (10:57)
[2022-04-21] MEDS ORDERED: IOPAMIDOL M200 10 ML VIAL ONE (10:57)
[2022-04-21] MEDS ORDERED: LACTATED RINGERS 1,000 ML IV ONE (11:11)
--- NOTE | 2022-04-21 11:14 | P.PCN ---
Date of Procedure: 04/21/22 Description of Procedure: Procedure: 1. L5-S1 Epidural steroid injection under fluoroscopic guidance 2. Lumbar epidurogram PREOPERATIVE DIAGNOSIS: Lumbar degenerative disc disease, and Lumbar radiculopathy. POSTOPERATIVE DIAGNOSIS: Lumbar degenerative disc disease, and Lumbar radicu lopathy. SURGEON: Tiffanie Castañeda ANESTHESIA: Local with 1% lidocaine, and IV sedation : Midazolam 2 mg, and fentanyl 100 g Sedation supervision start time : 1055 sedation Supervision end time: 1106 EBL: None. Specimen removed: None Fluoroscopic image: saved to electronic medical records PROCEDURE INDICATION: The patient had history of Lumbar degenerative disc disease and Lumbar radiculopathy. Failed to conservative therapy. Presented for epidural steroid injection. PROCEDURE DESCRIPTION: The patient was seen and identified in the preoperative area. Risks, benefits, complications, and alternatives were discussed with the patient. The patient agreed to proceed with the procedure and signed the consent. IV was started, and vital signs were stable. Patient was taken to the procedure area, and time out was completed. The patient was placed in the prone position on procedure table and a pillow was placed under the abdomen to reduce lumbar lordosis. The lumbosacral area was prepped and draped in the usual sterile fashion. Critical pause was taken. Vital signs were closely monitored during the procedure. Using anterior-posterior fluoroscopy, the L5-S1 interlaminar space was identified, and skin and deeper tissues were localized with 1% lidocaine. Using anterior-posterior fluoroscopy, lateral fluoroscopy, and [id number] technique, a 20 gauge 3.5 Tuohy epidural needle entered the epidural space. After negative aspiration of CSF and blood with no paresthesias, 1 ml of [id number] contrast dye was injected and an excellent epidurogram was seen. Again after negative aspiration of CSF and blood with no paresthesias, 8 mL of block solution was injected into the epidural space. Block solution contained 80 mg of Depo-Medrol, and 7 mL of preservative-free normal saline. Needle was withdrawn intact, skin was cleansed, and bandages were applied. COMPLICATIONS: None. DISPOSITION / PLANS: The patient was placed in a supine position and transferred to the recovery area in a stable condition for observation. Patient was discharged from the recovery room after meeting discharge criteria. Home discharge instructions given to the patient by the staff. The patient was reexamined prior to discharge. The patient will schedule a follow up in the clinic in 4 weeks.
[2022-04-21] MEDS ORDERED: LACTATED RINGERS 1,000 ML IV SCH (11:15)
[2022-04-21 11:19] VITALS: RESP 15
--- NOTE | 2022-04-21 11:19 | FL ---
EXAMINATION TYPE: FL guided pain mgmt statistic DATE OF EXAM: 04/21/2022 CLINICAL HISTORY: Low back pain. TECHNIQUE: Fluoroscopy. COMPARISON: None. FINDINGS: Fluoroscopic guidance was provided during pain relief procedure performed by Dr. Sneed . A total of 2 seconds of fluoroscopic time was utilized during the procedure and two spot images ar e acquired. Images acquired shows needle localization at L5-S1 level with contrast injection from po sterior approach. IMPRESSION: As Above.
[2022-04-21 11:27] VITALS: BP 122/74; PULSE 62
== END 2022-04-21 11:41 | disposition home or self-care (01) ==
LOC: ORPAIN 09:55
DX: M51.16 Intervertebral disc disorders with radiculopathy, lumbar region (principal); E78.00 Pure hypercholesterolemia, unspecified; H91.90 Unspecified hearing loss, unspecified ear; F32.9 Major depressive disorder, single episode, unspecified
CPT/HCPCS: 62323; J2250; J1040; J3010; Q9966; 99152

== ENCOUNTER → 2022-05-30 | Outpatient (CLI) | payer MEDICARE, OTHER ==
[2022-05-30 10:48] VITALS: BP 105/61; PULSE 68; RESP 18; TEMP 97.6
--- NOTE | 2022-05-30 14:47 | P.PAINPG ---
PQRS Measure Charge Sheet Comment: A 57 yr old female w father at side with a history of severe and chronic mid to low back pain secondary to thoracolumbar degenerative disc diseases and spondylosis with facet arthropathy without myelopathy presents today for evaluation ZOYA L5-S1. Pt states she experienced 100% x 1 wk s/p procedure. Pain level is currently at 8/10 in intensity, constant, localized in lumbar spine, throbbing in character w shooting towards L/R of midline and up towards the thoracic spine. Pain is provoked by PT 2 yrs ago without relief. Pain is alleviated with sitting. Interventional pain procedures completed include ZOYA L5-S1 Patient is currently on Denies Patient denies any side effects of the medication(s), denies excessive drowsiness or sleepiness, denies suicidal ideation and reports that the current pain medication is helping to control the pain and improve activities of daily living. Patient denies any motor or sensory deficits. Patient denies any fever or night sweats, denies any change in the bowel movements or urination. Physical Examination: -Constitutional: Cooperative. Not in acute distress . - Neurologic: Cranial nerve II to XII intact. No focal neurological deficits. - Psychatric: Alert & oriented x 3. Matching mood & appropriate affect. Judgment and insight intact. - Musculoskeletal: Cervical spine: Muscle bulk/ tone/ strength in the bilateral upper extremities normal Vertebral body tenderness to palpation over Spurling test positive Distraction test positive Facet loading test positive Thoracic spine Muscle bulk / tone/ strength in the bilateral paraspinal muscles normal Vertebral body tender to palpation over BL thoracic paraspinal TTP and spasms Facet loading test positive Lumbar spine: Motor bulk/ tone/ strength lower extremities , thigh and legs : 5/5 Deep tendon reflexes : Normal Knee Jerk. Normal Ankle Jerk . Vertebral body tenderness to palpation over BL lumbar paraspinal TTP and spasms Lumbar Facet Loading Test positive Straight Leg Raise: positive at 30 degrees right side/ left side Gaenslen's Test positive Sacral spine : Severe tenderness over the Sacroiliac joint: right side / left side Range of motion: Flexion of the lumbar spine <60 degrees Range of motion: Extension of the lumbar spine <20 degrees Gaenslen's Test positive Tulio's Test positive Jaiden test: positive right side / left side Thigh Thrust Test Sacral Thrust Test Assessment and plan: Chronic mid to low back pain secondary to thoracolumbar degenerative disc disease, spondylosis with facet arthropathy without myelopathy Recommendation of BL TPIs of thoracolumbar T6 - L5. May need a series, up to every 2-3 mo , for optimal pain relief. Risks, benefits of procedure discussed and pt verbalized understanding. Admits anticoagulant use or medical history of diabetes. Protocol for discontinuation/ continuation of meds joon procedure discussed. Father at side is supportive of daughter going to chiropractic treatments w him All patient questions answered I have spent less than 30 minutes on patient care today. Dr Sneed was available by phone for the evaluation of this patient. The time was used to review the medical records including relevant urine studies and Prescription history (MAPs), review of the available imaging, evaluation and examination of the patient, coordination of care with the medical staff and if applicable referring physicians, as well as creation of the medical record PQRS Narrative: Pain Intensity [Back] 8 Hx Alcohol Use (MH) Yes Home Medications: Ambulatory Orders Aspirin [Adult Low Dose Aspirin EC] 81 mg PO DAILY 01/20/21 Atorvastatin [Lipitor] 5 mg PO HS 01/20/21 Escitalopram [Lexapro] 20 mg PO HS 01/20/21 QUEtiapine [SEROquel] 75 mg PO HS 01/20/21 busPIRone HCL [Buspar] 30 mg PO BID 01/20/21 traZODone HCL 100 mg PO HS 01/20/21 estradioL [Estradiol] 0.5 mg PO DAILY 02/25/21 Fexofenadine/Pseudoephedrine [Jocelyne-D 24 Hour Tablet] 1 tab PO DAILY 05/26/22 Controlled Substance Measures - Controlled Substance Measures Is patient prescribed a controlled substance at discharge?: No
== END | disposition home or self-care (01) ==
LOC: PNWHC3 10:11
PROVIDERS: ATTEND Specialist
DX: M47.895 Other spondylosis, thoracolumbar region (principal); M51.35 Other intervertebral disc degeneration, thoracolumbar region
CPT/HCPCS: 99211

== ENCOUNTER 2022-06-30 09:54 | Day surgery (SDC) | payer MEDICARE, OTHER ==
[2022-06-27 11:12] VITALS: BMI 33.1
[2022-06-30] MEDS ORDERED: LACTATED RINGERS 1,000 ML IV SCH (10:09)
[2022-06-30] MEDS ORDERED: LIDOCAINE 1% (10MG/ML) FOR IV START INTRADERMA PRN (10:09)
[2022-06-30 10:16] VITALS: RESP 16; TEMP 97.8
[2022-06-30] MEDS: LACTATED RINGERS 1,000 ML IV SCH ×2 (10:16→10:18)
[2022-06-30] MEDS ORDERED: TRIAMCINOLONE ACETONIDE 40 MG/ML 1 ML VIAL ONE (10:24)
[2022-06-30] MEDS ORDERED: ROPIVACAINE 5 MG/ML 20 ML AMPULE ONE (10:24)
[2022-06-30] MEDS ORDERED: fentaNYL (PF) 50 MCG/ML 2 ML AMP ONE (10:24)
[2022-06-30] MEDS ORDERED: MIDAZOLAM 2 MG/2 ML VIAL ONE (10:24)
--- NOTE | 2022-06-30 10:40 | P.PCN ---
Date of Procedure: 06/30/22 Description of Procedure: Pre and postop diagnosis: Myofascial pain syndrome Procedure: Trigger point injections X 9 Muscle group X bilateral lumbar paraspinal, bilateral iliocostalis lumborum Surgeon: Tiffanie Castañeda Anesthesia: Versed 2 mg, and fentanyl 100 g sedation Supervision start time: 06 16 Sedation supervision ended time: 1036 Complications: None Estimated blood loss: None Specimen removed: None Procedure indications: Patient had a history of myofascial pain syndrome. Patient tried conservative therapy. Came here for intervention procedure for better pain relief. Procedure description: Patient was seen and identified in the holding area risk benefits competitions alternative discussed with the patient. Patient agreed to proceed for the procedure signed the consent. Patient taken to the procedure area. Timeout was completed. A total number of 9 - trigger point area was marked with a sterile marker. After ChloraPrep used to clean the area. Critical pause was taken. Using 25-gauge 1-1/2 inch needle, Needle entered in each market site 2 mL of block solution injected at each level. The block solution containing 18 ml of 0.5% preservative-free ropivacaine with Kenlog 80 MG. Needle removed intact skin cleaned and Band-Aid applied. Patient tolerated the procedure well. Disposition: Patient discharge home after meeting the discharge criteria from the recovery. Patient scheduled to follow up with the pain clinic in 4weeks for follow-up visit.
[2022-06-30] MEDS ORDERED: LACTATED RINGERS 1,000 ML IV ONE (10:42)
[2022-06-30 10:59] VITALS: BP 104/70; PULSE 62
== END 2022-06-30 11:12 | disposition home or self-care (01) ==
LOC: ORPAIN 09:54
DX: M79.18 Myalgia, other site (principal); I10 Essential (primary) hypertension; F32.A Depression, unspecified; E78.00 Pure hypercholesterolemia, unspecified
CPT/HCPCS: 20553; 99152; J2250; J3301; J3010; J2795

== ENCOUNTER → 2022-07-21 | Outpatient (CLI) | payer MEDICARE, OTHER ==
[2022-07-21 13:13] VITALS: BP 116/72; PULSE 59; RESP 16; TEMP 98
--- NOTE | 2022-07-27 07:35 | P.PAINPG ---
PQRS Measure Charge Sheet Comment: A 57 yr old female w father and sign-specialized language instructor at side with a history of severe and chronic low back pain secondary to lumbar DDD and spondylosis with facet arthropathy without myelopathy presents today for evaluation s/p BL TPIs Lumbar spine. Pt states she experienced 50 % pain relief x 3 wks s/p procedure. In November 2021, patient underwent BL RFA L3-L5 where she admits to 80% pain relief x 6 months s/p seizure. Pain level is currently at 5 /10 in intensity, intermittent and localized in the mid to lower lumbar spine, dull/ achy in character w shooting towards the buttocks and BLEs. Pain is provoked by standing/ walking for periods of 15 min or more. Pain is alleviated with chiropractic treatments 4 sessions which provoked pain, multiple topicals without relief, laying supine and rest. Interventional pain procedures completed include BL Lumbar TPIs, BL SI x2, BL L3-L5 RFA, LESIs Patient is currently on Denies Patient denies any side effects of the medication(s), denies excessive drowsiness or sleepiness, denies suicidal ideation and reports that the current pain medication is helping to control the pain and improve activities of daily living. Patient denies any motor or sensory deficits. Patient denies any fever or night sweats, denies any change in the bowel movements or urination. Physical Examination: -Constitutional: Cooperative. Not in acute distress . - Neurologic: Cranial nerve II to XII intact. No focal neurological deficits. - Psychatric: Alert & oriented x 3. Matching mood & appropriate affect. Judgment and insight intact. - Musculoskeletal: Cervical spine: Muscle bulk/ tone/ strength in the bilateral upper extremities normal Vertebral body tenderness to palpation over Spurling test positive Distraction test positive Facet loading test positive Thoracic spine Muscle bulk / tone/ strength in the bilateral paraspinal muscles normal Vertebral body tender to palpation over Facet loading test positive Lumbar spine: Motor bulk/ tone/ strength lower extremities , thigh and legs : 5/5 Deep tendon reflexes : Normal Knee Jerk. Normal Ankle Jerk . Vertebral body tenderness to palpation over Lumbar Facet Loading Test positive TTP over BL L4-L5, L5-S1 facets Straight Leg Raise: positive at 30 degrees right side/ left side Gaenslen's Test positive Sacral spine : Severe tenderness over the Sacroiliac joint: right side / left side Range of motion: Flexion of the lumbar spine <60 degrees Range of motion: Extension of the lumbar spine <20 degrees Gaenslen's Test positive Jaiden test: positive right side / left side Thigh Thrust Test Sacral Thrust Test Assessment and plan: Chronic LBP secondary to lumbar degenerative disc disease, spondylosis with facet arthropathy without myelopathy Recommendation of BL RFA L4-L5, L5-S1. Patient exhibited optimal and sufficient pain relief with prior RFA in November 2021. Risks, benefits of procedure discussed and pt verbalized understanding. Denies anticoagulant use or medical history of diabetes. All patient questions answered I have spent less than 30 minutes on patient care today. Dr Sneed was available by phone for the evaluation of this patient. The time was used to review the medical records including relevant urine studies and Prescription history (MAPs), review of the available imaging, evaluation and examination of the patient, coordination of care with the medical staff and if applicable referring physicians, as well as creation of the medical record PQRS Narrative: Hx Alcohol Use (MH) Yes Home Medications: Ambulatory Orders Aspirin [Adult Low Dose Aspirin EC] 81 mg PO DAILY 01/20/21 Atorvastatin [Lipitor] 5 mg PO HS 01/20/21 Escitalopram [Lexapro] 20 mg PO HS 01/20/21 QUEtiapine [SEROquel] 75 mg PO HS 01/20/21 busPIRone HCL [Buspar] 30 mg PO BID 01/20/21 traZODone HCL 100 mg PO HS 01/20/21 estradioL [Estradiol] 0.5 mg PO DAILY 02/25/21 Fexofenadine/Pseudoephedrine [Jocelyne-D 24 Hour Tablet] 1 tab PO DAILY 05/26/22 Controlled Substance Measures - Controlled Substance Measures Is patient prescribed a controlled substance at discharge?: No
== END ==
LOC: PNWHC3 10:52
PROVIDERS: ATTEND Specialist
DX: M47.816 Spondylosis without myelopathy or radiculopathy, lumbar region (principal); M51.36 Other intervertebral disc degeneration, lumbar region; G89.29 Other chronic pain
CPT/HCPCS: 99211

== ENCOUNTER 2022-11-17 11:55 | Day surgery (SDC) | payer MEDICARE, OTHER ==
[2022-11-16 12:06] VITALS: BMI 32.4
[2022-11-17] MEDS ORDERED: LACTATED RINGERS 1,000 ML IV ONE (12:35)
[2022-11-17 12:36] VITALS: TEMP 97
[2022-11-17] MEDS ORDERED: fentaNYL (PF) 50 MCG/ML 2 ML AMP ONE (12:45)
[2022-11-17] MEDS ORDERED: methylPREDNISolone ACETATE 40 MG/ML 1 ML VIAL ONE (12:45)
[2022-11-17] MEDS ORDERED: MIDAZOLAM 2 MG/2 ML VIAL ONE (12:45)
[2022-11-17] MEDS ORDERED: ROPIVACAINE 5 MG/ML 30 ML VIAL ONE (12:45)
[2022-11-17] MEDS ORDERED: IV FLUID CONTINUATION 900 ML IV ONE (12:55)
--- NOTE | 2022-11-17 12:57 | P.PCN ---
Date of Procedure: 11/17/22 Procedure(s) Performed: Procedure= left iliolumbar ligament steroid injection under fluoroscopy guidance (fluoroscopy image stored on file in the radiology Department ) Preoperative diagnosis= 1-left iliolumbar ligament neuralgia 2-lumbar degenerative disc disease 3-lumbar facet arthropathy Postoperative diagnosis=. 1-left iliolumbar ligament neuralgia 2-lumbar degenerative disc disease 3-lumbar facet arthropathy Complication = none Condition= stable Anesthesia= moderate sedation with intravenous Versed 2 mg , and fentanyl 50 micrograms . Sedation start time:1246 Sedation end time :1250 Indication for the procedure= patient complaining of low back pain , examination was positive for severe tenderness over the left iliolumbar ligament and patient diagnosed with iliolumbar ligament neuralgia, for this reason she was good candidate for left iliolumbar ligament steroid injection. Description of the procedure= procedure risk and benefits discussed with the patient, including but not limited, risk of infection and bleeding, and ALLERGIC reaction to the medication and not complete pain relief and patient agreed with the preceding patient taken to the operating room, placed in prone position or standard monitors applied to the patient then after induction of anesthesia back prepped with chlorhexidine 3 times , Then under strict sterile technique, first I did the left iliolumbar ligament injection by placing a 25-gauge needle at the location of the distance between the sacral alar on the left side and the L5 transverse processes on the left side and in the middle of the distance 25-gauge needle placed under fluoroscopy guidance and needle placement confirmed with AP and lateral view and after negative aspiration for heme and there was no paresthesia during the injection, total of 5 ML of ropivacaine 0.5% mixed with 40 mg of Depo-Medrol injected at the location of the left iliolumbar ligament patient tolerated the procedure well without any complications, she will follow up in the pain clinic in few weeks
[2022-11-17 13:03] VITALS: PULSE 56; RESP 16
[2022-11-17 13:12] VITALS: BP 107/60
--- NOTE | 2022-11-17 13:53 | FL ---
Intraoperative/procedural fluoroscopic services were provided. Total fluoroscopy time is 1 seconds wi th a total of 1 submitted images to PACS. Please see the operative/procedural note for further detail s. DAP: [id number]
== END 2022-11-17 13:27 | disposition home or self-care (01) ==
LOC: ORPAIN 11:55
PROVIDERS: ATTEND Specialist
DX: M51.36 Other intervertebral disc degeneration, lumbar region (principal); M47.816 Spondylosis without myelopathy or radiculopathy, lumbar region; M53.3 Sacrococcygeal disorders, not elsewhere classified
CPT/HCPCS: 20550; J2250; J1030; J3010; J2795

== ENCOUNTER → 2022-12-08 | Outpatient (CLI) | payer MEDICARE, OTHER ==
[2022-12-08 11:54] VITALS: BP 94/62; PULSE 67; RESP 18; TEMP 97.6
--- NOTE | 2022-12-08 14:31 | P.PAINPG ---
PQRS Measure Charge Sheet Comment: A 57 yr old female w father at side with a history of severe and chronic LBP secondary to lumbar DDD and spondylosis with facet arthropathy without myelopathy presents today for evaluation s/p L iliolumbar ligament injection. Pt states she experienced 90 % pain relief x 3 wks s/p procedure. Pain level is pr ovoked at 8/10 in intensity, constant, localized in the lumbar spine, sharp in character w shooting towards the RLE. Pain is provoked by weight bearing activity. Pain is alleviated with injections, medications (Excedrin), PT x 6 wks in 2021, chiropractic treatments semi weekly x 1 mo, repositioning and rest. Interventional pain procedures completed include BL RFA L3-L5, L iliolumbar injection Patient is currently on ASA, Excedrin Patient denies any side effects of the medication(s), denies excessive drowsiness or sleepiness, denies suicidal ideation and reports that the current pain medication is helping to control the pain and improve activities of daily living. Patient denies any motor or sensory deficits. Patient denies any fever or night sweats, denies any change in the bowel movements or urination. Physical Examination: -Constitutional: Cooperative. Not in acute distress . - Neurologic: Cranial nerve II to XII intact. No focal neurological deficits. - Psychatric: Alert & oriented x 3. Matching mood & appropriate affect. Judgment and insight intact. - Musculoskeletal: Cervical spine: Muscle bulk/ tone/ strength in the bilateral upper extremities normal Vertebral body tenderness to palpation over Spurling test positive Distraction test positive Facet loading test positive TTP Thoracic spine Muscle bulk / tone/ strength in the bilateral paraspinal muscles normal Vertebral body tender to palpation over Facet loading test positive TTP Lumbar spine: Motor bulk/ tone/ strength lower extremities , thigh and legs : 5/5 Deep tendon reflexes : Normal Knee Jerk. Normal Ankle Jerk . Vertebral body tenderness to palpation over L5 on the R Lumbar Facet Loading Test positive Straight Leg Raise: positive at 30 degrees right side/ left side Gaenslen's Test positive Sacral spine : Severe tenderness over the Sacroiliac joint: right side / left side Range of motion: Flexion of the lumbar spine <60 degrees Range of motion: Extension of the lumbar spine <20 degrees Gaenslen's Test positive right side / left side Jaiden test: positive right side / left side Thigh Thrust Test positive right side / left side Sacral Thrust Test positive right side / left side Assessment and plan: Chronic LBP secondary to lumbar DDD, spondylosis with facet arthropathy without myelopathy Recommendation of R TFESI L5-S1. May need a series of injections for optimal pain relief. Risks, benefits of procedure discussed and pt verbalized understanding. Admits to anticoagulant use or medical history of diabetes. Protocol for discontinuation/ continuation of medications joon procedure discussed. All questions answered. I have spent less than 30 minutes on patient care today. Dr Sneed was available by phone for the evaluation of this patient. The time was used to review the medical records including relevant urine studies and Prescription history (MAPs), review of the available imaging, evaluation and examination of the patient, coordination of care with the medical staff and if applicable referring physicians, as well as creation of the medical record PQRS Narrative: Hx Alcohol Use (MH) Yes Home Medications: Ambulatory Orders Atorvastatin [Lipitor] 10 mg PO HS 01/20/21 Escitalopram [Lexapro] 20 mg PO HS 01/20/21 QUEtiapine [SEROquel] 75 mg PO HS 01/20/21 busPIRone HCL [Buspar] 30 mg PO BID 01/20/21 traZODone HCL 100 mg PO HS 01/20/21 estradioL [Estradiol] 0.5 mg PO DAILY 02/25/21 Famotidine [Pepcid] 20 mg PO BID 09/29/22 Controlled Substance Measures - Controlled Substance Measures Is patient prescribed a controlled substance at discharge?: No
== END ==
LOC: PNWHC3 11:17
PROVIDERS: ATTEND Specialist
DX: M51.36 Other intervertebral disc degeneration, lumbar region (principal); M47.817 Spondylosis without myelopathy or radiculopathy, lumbosacral region; G89.29 Other chronic pain
CPT/HCPCS: 99211

== ENCOUNTER 2023-01-10 12:07 | Day surgery (SDC) | payer MEDICARE, OTHER ==
[2023-01-10 12:34] VITALS: TEMP 96.9
[2023-01-10] MEDS ORDERED: fentaNYL (PF) 50 MCG/ML 2 ML AMP ONE (12:48)
[2023-01-10] MEDS ORDERED: MIDAZOLAM 2 MG/2 ML VIAL ONE (12:48)
[2023-01-10] MEDS ORDERED: ROPIVACAINE 5 MG/ML 20 ML AMPULE ONE (12:48)
[2023-01-10] MEDS ORDERED: methylPREDNISolone ACETATE 40 MG/ML 1 ML VIAL ONE (12:48)
--- NOTE | 2023-01-10 12:54 | P.PCN ---
Date of Procedure: 01/10/23 Procedure(s) Performed: Procedure= trigger point injections lumbar paraspinal muscles bilaterally , 3 on the right side from L2 to S1, and 4 on the left side from L2 to S1 Preoperative diagnosis= 1-myofascial pain syndrome lumbar paraspinal muscles 2-lumbar degenerative disc disease 3-lumbar facet arthropathy Postoperative diagnosis=Same as preop Diagnosis . Complication = none Condition= stable Anesthesia= moderate sedation with Versed 2 mg. and fentanyl 50 g Sedation started at 1248,end at 1251 Indication for the procedure= patient complaining of low back pain , examination was positive for multiple trigger point in the lumbar paraspinal muscles bilaterally and patient diagnosed with myofascial pain syndrome and is here to have trigger point injections Description of the procedure= procedure risk and benefits discussed with the patient, including but not limited, risk of infection and bleeding, and ALLERGIC reaction to the medication and not complete pain relief and patient agreed with the preceding patient taken to the operating room, placed in sitting position or standard monitors applied to the patient then after induction of anesthesia back prepped with chlorhexidine 3 times , then under sterile technique each of the trigger point that was marked in the preop holding area 3 on the right side lumbar paraspinal muscles and 4 on the left side lumbar paraspinal muscles each one of them injected with the 2 mL of the mixture of ropivacaine 0.5% 14 ML mixed with 40 mg of Depo-Medrol and 2 mL of the mixture injected at each trigger point after negative aspiration, using 25-gauge needle, injection done after negative aspiration under was no paresthesia during the injection patient tolerated the procedure well without any complications and he will follow up in the pain clinic in a few weeks
[2023-01-10] MEDS ORDERED: IV FLUID CONTINUATION 900 ML IV ONE (12:55)
[2023-01-10 13:07] VITALS: RESP 16
[2023-01-10 13:19] VITALS: BP 116/74; PULSE 53
== END 2023-01-10 13:32 | disposition home or self-care (01) ==
LOC: ORPAIN 12:07
PROVIDERS: ATTEND Specialist
DX: M71.8 Other specified bursopathies (principal); M51.36 Other intervertebral disc degeneration, lumbar region; M47.816 Spondylosis without myelopathy or radiculopathy, lumbar region
CPT/HCPCS: 20553; J2250; J1030; J3010; J2795

== ENCOUNTER → 2023-02-08 | Outpatient (CLI) | payer MEDICARE, OTHER ==
[2023-02-08 13:50] VITALS: BP 100/54; PULSE 49; RESP 18; TEMP 97.5
--- NOTE | 2023-02-08 15:00 | P.PAINPG ---
PQRS Measure Charge Sheet Comment: A 58 yr old female w father at side with a history of severe and chronic LBP secondary to lumbar DDD and spondylosis with facet arthropathy without myelopathy presents today for evaluation s/p Lumbar TPIs. Pt states she experienced 100 % pain relief x 4 wks s/p procedure. Pain level is provoked at 0/10 in intensity. Interventional pain procedures completed include Lumbar TPIs, BL RFA L3-L5, BL iliolumbar injections Patient is currently on DENIES Patient denies any side effects of the medication(s), denies excessive drowsiness or sleepiness, denies suicidal ideation and reports that the current pain medication is helping to control the pain and improve activities of daily living. Patient denies any motor or sensory deficits. Patient denies any fever or night sweats, denies any change in the bowel movements or urination. Physical Examination: -Constitutional: Cooperative. Not in acute distress . - Neurologic: Cranial nerve II to XII intact. No focal neurological deficits. - Psychatric: Alert & oriented x 3. Matching mood & appropriate affect. Judgment and insight intact. - Musculoskeletal: Cervical spine: Muscle bulk/ tone/ strength in the bilateral upper extremities normal Vertebral body tenderness to palpation over Spurling test positive Distraction test positive Facet loading test positive TTP Thoracic spine Muscle bulk / tone/ strength in the bilateral paraspinal muscles normal Vertebral body tender to palpation over Facet loading test positive TTP Lumbar spine: Motor bulk/ tone/ strength lower extremities , thigh and legs : 5/5 Deep tendon reflexes : Normal Knee Jerk. Normal Ankle Jerk . Vertebral body tenderness to palpation over Ortega Test positive Lumbar Facet Loading Test positive Straight Leg Raise: positive at 30 degrees right side/ left side Gaenslen's Test positive Sacral spine : Severe tenderness over the Sacroiliac joint: right side / left side Range of motion: Flexion of the lumbar spine <60 degrees Range of motion: Extension of the lumbar spine <20 degrees Gaenslen's Test positive right side / left side Jaiden test: positive right side / left side Thigh Thrust Test positive right side / left side Sacral Thrust Test positive right side / left side Assessment and plan: Chronic LBP secondary to lumbar DDD, spondylosis with facet arthropathy without myelopathy Will manage residual pain at home as it arises and may return to clinic on an as needed basis. All questions answered. I have spent less than 30 minutes on patient care today. Dr Sneed was available by phone for the evaluation of this patient. The time was used to review the medical records including relevant urine studies and Prescription history (MAPs), review of the available imaging, evaluation and examination of the patient, coordination of care with the medical staff and if applicable referring physicians, as well as creation of the medical record PQRS Narrative: Hx Alcohol Use (MH) Yes Home Medications: Ambulatory Orders Atorvastatin [Lipitor] 10 mg PO HS 01/20/21 Escitalopram [Lexapro] 20 mg PO HS 01/20/21 QUEtiapine [SEROquel] 75 mg PO HS 01/20/21 busPIRone HCL [Buspar] 30 mg PO BID 01/20/21 traZODone HCL 100 mg PO HS 01/20/21 estradioL [Estradiol] 0.5 mg PO DAILY 02/25/21 Famotidine [Pepcid] 20 mg PO BID 09/29/22 Controlled Substance Measures - Controlled Substance Measures Is patient prescribed a controlled substance at discharge?: No
== END ==
LOC: PNWHC3 13:09
PROVIDERS: ATTEND Specialist
DX: M51.36 Other intervertebral disc degeneration, lumbar region (principal); M47.816 Spondylosis without myelopathy or radiculopathy, lumbar region; G89.29 Other chronic pain
CPT/HCPCS: 99211

== ENCOUNTER → 2024-02-07 | Outpatient (CLI) | payer MEDICARE, OTHER ==
[2024-02-07 14:36] VITALS: BP 139/60; PULSE 51; RESP 16
--- NOTE | 2024-02-07 14:51 | P.PAINPG ---
PQRS Measure Charge Sheet Comment: A 59 yr old female w father at side with a history of severe and chronic LBP secondary to lumbar DDD and spondylosis with facet arthropathy without myelopathy presents today for evaluation. Pt underwent a BL RFA L3-L5 in Sep 2022 where she states she experienced 75% pain relief x 9 mo s/p procedure. Pt states pain is provoked at 7/10 in intensity, constant, predominantly axial, achy in character w occasional radiation of pain L & R of midline. Pain is provoked by standing for periods > 15 min. Pain is alleviated by injections, PT x 6 wks in 2018, chiropractic treatments in 2021, physician guided home exercises every other day since Fall 2021, medications, topical, repositioning and rest. Oswestry axial pain score of 27. Interventional pain procedures completed include Lumbar TPIs, BL RFA L3-L5 (Sep 2022), BL iliolumbar injections x1 Patient is currently on Excedrin, BioFreeze Gel Patient denies any side effects of the medication(s), denies excessive drowsiness or sleepiness, denies suicidal ideation and reports that the current pain medication is helping to control the pain and improve activities of daily living. Patient denies any motor or sensory deficits. Patient denies any fever or night sweats, denies any change in the bowel movements or urination. Physical Examination: -Constitutional: Cooperative. Not in acute distress . - Neurologic: Cranial nerve II to XII intact. No focal neurological deficits. - Psychatric: Alert & oriented x 3. Matching mood & appropriate affect. Judg ment and insight intact. - Musculoskeletal: Cervical spine: Muscle bulk/ tone/ strength in the bilateral upper extremities normal Vertebral body tenderness to palpation over Spurling test positive Distraction test positive Facet loading test positive TTP Thoracic spine Muscle bulk / tone/ strength in the bilateral paraspinal muscles normal Vertebral body tender to palpation over Facet loading test positive TTP Lumbar spine: Motor bulk/ tone/ strength lower extremities , thigh and legs : 5/5 Deep tendon reflexes : Normal Knee Jerk. Normal Ankle Jerk . Vertebral body tenderness to palpation over Ortega Test positive Lumbar Facet Loading Test positive BL L4-L5, L5-S1 Straight Leg Raise: positive at 30 degrees right side/ left side Gaenslen's Test positive Sacral spine : Severe tenderness over the Sacroiliac joint: right side / left side Range of motion: Flexion of the lumbar spine <60 degrees Range of motion: Extension of the lumbar spine <20 degrees Gaenslen's Test positive right side / left side Jaiden test: positive right side / left side Thigh Thrust Test positive right side / left side Sacral Thrust Test positive right side / left side Assessment and plan: Chronic LBP secondary to lumbar DDD, spondylosis with facet arthropathy without myelopathy Recommendation of BL RFA L3-L5. Exhibited optimal pain relief w prior BL RFA from Sep 2022. Risks, benefits of procedure discussed and pt verbalized understanding. Protocol for discontinuation/ continuation of medications joon procedure discussed. Minimal anesthesia including Fentanyl and Versed if indicated. All questions answered. I have spent less than 30 minutes on patient care today. Dr Sneed was available by phone for the evaluation of this patient. The time was used to review the medical records including relevant urine studies and Prescription history (MAPs), review of the available imaging, evaluation and examination of the patient, coordination of care with the medical staff and if applicable referring physicians, as well as creation of the medical record PQRS Narrative: Hx Alcohol Use (MH) Yes Home Medications: Ambulatory Orders Atorvastatin [Lipitor] 10 mg PO HS 01/20/21 Escitalopram [Lexapro] 20 mg PO HS 01/20/21 QUEtiapine [SEROquel] 75 mg PO HS 01/20/21 busPIRone HCL [Buspar] 30 mg PO BID 01/20/21 traZODone HCL 100 mg PO HS 01/20/21 estradioL [Estradiol] 0.5 mg PO DAILY 02/25/21 Famotidine [Pepcid] 20 mg PO BID 09/29/22 Controlled Substance Measures - Controlled Substance Measures Is patient prescribed a controlled substance at discharge?: No
== END ==
LOC: PNWHC3 14:07
PROVIDERS: ATTEND Specialist
DX: M51.37 Other intervertebral disc degeneration, lumbosacral region (principal); M47.817 Spondylosis without myelopathy or radiculopathy, lumbosacral region
CPT/HCPCS: 99211

== ENCOUNTER 2024-03-15 11:19 | Day surgery (SDC) | payer MEDICARE, OTHER ==
[2024-03-14 10:29] VITALS: BMI 30.1
[2024-03-15 11:40] VITALS: RESP 16; TEMP 97
[2024-03-15] MEDS: LACTATED RINGERS 1,000 ML IV SCH (11:45)
[2024-03-15] MEDS: IV FLUID CONTINUATION 1,000 ML IV ONE (11:45)
[2024-03-15] MEDS ORDERED: ROPIVACAINE 5MG/ML 20ML VIAL ONE (12:36)
[2024-03-15] MEDS ORDERED: TRIAMCINOLONE ACETONIDE 40 MG/ML 1 ML VIAL ONE (12:36)
[2024-03-15] MEDS ORDERED: fentaNYL (PF) 50 MCG/ML 2 ML AMP ONE (12:36)
[2024-03-15] MEDS ORDERED: MIDAZOLAM 2 MG/2 ML VIAL ONE (12:36)
--- NOTE | 2024-03-15 13:10 | P.PCN ---
Date of Procedure: 03/15/24 Surgeon: Dk Hodges Pathology: none sent Condition: stable Disposition: PACU Description of Procedure: REOPERATIVE DIAGNOSIS: Lumbar spondylosis without myelopathy POSTOPERATIVE DIAGNOSIS: Lumbar spondylosis without myelopathy PROCEDURES : Bilateral Radiofrequency thermocoagulation L4-L5, and L5-S1 medial branch, with fluoroscopic guidance ANESTHESIA: Local with lidocaine 1% using 25-gauge needle and IV moderate conscious sedation with 2 mg of Versed and 100 g of fentanyl Sedation time:[id number] Physician: Dk Hodges MD EBL: Minimal PROCEDURE INDICATION: The patient with low back pain secondary to lumbar facet arthropathy who had significant relief of pain with previous diagnostic lumbar medial branch block with Ropivacaine0.5%. PROCEDURE DESCRIPTION / TECHNIQUE: The patient was seen and identified in the preoperative area. Risks, benefits, complications, including but not limited to risk of infection ,bleeding , allergic reactions to the medications and no complete pain relief , and alternatives were discussed with the patient, the patient agreed to proceed with the procedure and signed the consent. IV was started. Vital signs remained stable throughout the procedure. Patient was taken to the OR and time out was completed. The patient was placed in the prone position on the procedure table. The lumber area was prepped and draped in the usual sterile fashion. . Vital signs were closely monitored during the procedure .IV sedation was used during the procedure to decrease patients anxiety. The target points were identified as follows: For the L5-S1 level which corresponds to the dorsal ramus of L5 the target point was at the superior medial aspect of the sacral ala on the Rt side of the spine on the AP view of fluoroscopy and for the L3, and L4 medial branches the target points were at the connection between the transverse process and the superior articular process of L4, and L5 vertebra respectively on the Rt oblique view of fluoroscopy. skin was marked, and localized with 1% lidocaineat these points. Subsequently, an 18 [id number] radiofrequency needles with a 10-mm curved active tips were advanc ed guided by fluoroscopy to each of the target points mentioned above in a superior medial direction to get the active tips as parallel as possible to the medial branches tracks. AP, oblique, and lateral views of fluoroscopy were used to verify needle tips position. Each level then underwent motor testing at 2.5 Hz and 0 to 3 volt with local stimulation, but no radicular symptoms down the legs. I then injected 1 mL of lidocaine 1% in each needle before starting radiofrequency thermocoagulation at 80 degrees celsius for 90 seconds. After that I injected 1 ml of PF Ropivacaine 0.5%(3 mls) with 40 mg of Kenalog, 1 mL of this mixture was given in each needle before taking the needles out intact. Then the left side with the same levels was done in the same manner. At the end of the procedure, the skin was cleansed and bandages were applied. A copy of needle placement fluoroscopy was saved on the C-arm machine. Of note: we had difficulty communicating with the patient during the procedure because she is deaf. COMPLICATIONS: No acute complications. DISPOSITION / PLANS: The patient was placed in a supine position and transferred to the recovery area in a stable condition for observation and was discharged from the recovery room after meeting discharge criteria. Home discharge instructions given to the patient by the staff. The patient was reexamined prior to discharge. The patient will schedule a follow up in the clin ic in 2-4 weeks.
[2024-03-15] MEDS: IV FLUID CONTINUATION 350 ML IV ONE (13:15)
--- NOTE | 2024-03-15 13:16 | FL ---
Fluoroscopy History: RAD FREQ FB LUM FATEMEH FATEMEH RAD FREQ FB DR. HALL FL TIME- 23.3 SEC DAP- [id number]
[2024-03-15 13:32] VITALS: BP 136/74; PULSE 61
== END 2024-03-15 13:52 | disposition home or self-care (01) ==
LOC: ORPAIN 11:19
PROVIDERS: ATTEND Anesthesiology
DX: M47.816 Spondylosis without myelopathy or radiculopathy, lumbar region (principal); H91.90 Unspecified hearing loss, unspecified ear; Z79.82 Long term (current) use of aspirin
CPT/HCPCS: 64635; 64636 ×2; 99152; 99153; J2250; J3301; J3010; J2795

== ENCOUNTER → 2025-01-01 | Outpatient (CLI) | payer MEDICARE, OTHER ==
[2025-01-01 11:37] VITALS: BP 114/68; PULSE 61; RESP 16; TEMP 97.1
--- NOTE | 2025-01-01 15:56 | P.PAINPG ---
Objective - Vital Signs Vital signs: Intake & Output 12/31/24 01/01/25 01/01/25 18:59 06:59 18:59 Weight 81.647 kg PQRS Measure Charge Sheet Comment: A 59 yr old female w father at side with a history of severe and chronic LBP secondary to radiculopathy, spondylosis with facet arthropathy without myelopathy presents today for evaluation s/p BL RFA L3-L5. Pt states states she experienced 75% pain relief x 8 mo s/p procedure. Pt states pain is provoked at 8 /10 in intensity, constant, predominantly axial, achy in character w occasional radiation of pain L & R of midline. Pain is provoked by standing for periods > 15 min. Pain is alleviated by injections, PT x 6 wks in 2018, chiropractic treatments in 2021, physician guided home exercises every other day since Fall 2021, medications, topical, repositioning and rest. Oswestry axial pain score of 27. Interventional pain procedures completed include Lumbar TPIs, BL RFA L3-L5 x2 (10/13, 03/13), BL iliolumbar injections x1 Patient is currently on Excedrin, BioFreeze Gel Patient denies any side effects of the medication(s), denies excessive drowsiness or sleepiness, denies suicidal ideation and reports that the current pain medication is helping to control the pain and improve activities of daily living. Patient denies any motor or sensory deficits. Patient denies any fever or night sweats, denies any change in the bowel movements or urination. Physical Examination: -Constitutional: Cooperative. Not in acute distress . - Neurologic: Cranial nerve II to XII intact. No focal neurological deficits. - Psychatric: Alert & oriented x 3. Matching mood & appropriate affect. Judgment and insight intact. - Musculoskeletal: Cervical spine: Muscle bulk/ tone/ strength in the bilateral upper extremities normal Vertebral body tenderness to palpation over Spurling test positive Distraction test positive Facet loading test positive TTP Thoracic spine Muscle bulk / tone/ strength in the bilateral paraspinal muscles normal Vertebral body tender to palpation over Facet loading test positive TTP Lumbar spine: Motor bulk/ tone/ strength lower extremities , thigh and legs : 5/5 Deep tendon reflexes : Normal Knee Jerk. Normal Ankle Jerk . Vertebral body tenderness to palpation over L5 Ortega Test positive L L4-L5/ R L5-S1 Lumbar Facet Loading Test positive BL L4-L5, L5-S1 Straight Leg Raise: positive at 30 degrees right side/ left side Gaenslen's Test positive Sacral spine : Severe tenderness over the Sacroiliac joint: right side / left side Range of motion: Flexion of the lumbar spine <60 degrees Range of motion: Extension of the lumbar spine <20 degrees Gaenslen's Test positive right side / left side Jaiden test: positive right side / left side Thigh Thrust Test positive right side / left side Sacral Thrust Test positive right side / left side Assessment and plan: Chronic LBP secondary to radiculopathy, spondylosis with facet arthropathy without myelopathy Recommendation of L TFESI L4-L5/ R TFESI L5-S1 #1. Risks, benefits of procedure discussed and pt verbalized understanding. Protocol for discontinuation/ continuation of medications joon procedure discussed.All questions answered. I have spent less than 30 minutes on patient care today. Dr Sneed was rey ilable by phone for the evaluation of this patient. The time was used to review the medical records including relevant urine studies and Prescription history (MAPs), review of the available imaging, evaluation and examination of the patient, coordination of care with the medical staff and if applicable referring physicians, as well as creation of the medical record PQRS Narrative: Hx Alcohol Use (MH) Yes Home Medications: Ambulatory Orders Atorvastatin [Lipitor] 10 mg PO HS 01/20/21 Escitalopram [Lexapro] 20 mg PO HS 01/20/21 QUEtiapine [SEROquel] 75 mg PO HS 01/20/21 busPIRone HCL [Buspar] 30 mg PO BID 01/20/21 traZODone HCL 100 mg PO HS 01/20/21 Famotidine [Pepcid] 20 mg PO BID 09/29/22 Aspirin EC [Ecotrin Low Dose] 81 mg PO DAILY 03/14/24 Gabapentin [Gabarone] 100 mg PO 01/01/25 Controlled Substance Measures - Controlled Substance Measures Is patient prescribed a controlled substance at discharge?: Yes When asked, does pt state using other controlled substances?: No If prescribed controlled substance>3 days was MAPS reviewed?: Prescribed <3 Days
== END ==
LOC: PNWHC3 11:21
PROVIDERS: ATTEND Specialist
DX: M47.26 Other spondylosis with radiculopathy, lumbar region (principal); G89.29 Other chronic pain; F12.90 Cannabis use, unspecified, uncomplicated
CPT/HCPCS: 99211

== ENCOUNTER 2025-02-14 11:27 | Day surgery (SDC) | payer MEDICARE, OTHER ==
[2025-02-12 13:41] VITALS: BMI 31.3
[~2025-02-14 11:27] MED LIST changes: -LIDOCAINE 1% (10MG/ML) FOR IV START INTRADERMA PRN
[2025-02-14 11:46] VITALS: RESP 16; TEMP 97.6
[2025-02-14] MEDS ORDERED: IOPAMIDOL M200 10 ML VIAL ONE (12:22)
[2025-02-14] MEDS ORDERED: MIDAZOLAM 2 MG/2 ML VIAL ONE (12:22)
[2025-02-14] MEDS ORDERED: fentaNYL (PF) 50 MCG/ML 2 ML AMP ONE (12:22)
[2025-02-14] MEDS ORDERED: methylPREDNISolone ACETATE 80 MG/ML 1 ML VIAL ONE (12:22)
--- NOTE | 2025-02-14 12:37 | P.PCN ---
Date of Procedure: 02/14/25 Procedure(s) Performed: PREOPERATIVE DIAGNOSIS: 1-Lumbar radiculopathy . 2-lumbar spondylosis with lumbar facet arthropathy without myelopathy POSTOPERATIVE DIAGNOSIS: 1-lumbar radiculopathy. 2-lumbar spondylosis with facet arthropathy without myelopathy PROCEDURE 1. Transforaminal epidural steroid injection under fluoroscopic guidance at left L4-5, and the right L5-S1 level. (Fluoroscopy on file in the rad Dept) 2. Lumbar epidurogram . ANESTHESIA: Moderate sedation with Versed 2 mg and fentanyl 100 mcg ( sedation start time 1222, end time 1231 ) EBL: Minimal PROCEDURE INDICATION: The patient with low back pain and radiculopathy symptoms unresponsive to conservative treatment. PROCEDURE DESCRIPTION / TECHNIQUE: The patient was seen and identified in the preoperative area. Risks, benefits, complications, and alternatives were discussed with the patient. The patient agreed to proceed with the procedure and signed the consent. IV was started, and vital signs were stable. Patient was taken to the OR and time out was completed. The patient was placed in the prone position on procedure table and a pillow was placed under the abdomen to reduce lumbar lordosis. The lumbosacral area was prepped and draped in the usual sterile fashion. Critical pause was taken. Vital signs were closely monitored during the procedure. Using oblique fluoroscopy, the chin of the ``Rehan dog at left L4-5 level was identified, and the skin and deeper tissues just below was localized with 1% lidocaine. Subsequently, a 22-gauge 5-inch spinal needle was advanced under a tunneled view fluoroscopic guidance just underneath the chin of the ``Rehan dog at the left L4-5 Under lateral fluoroscopy, the needle was then advanced to the posterior border of the interforaminal space. After negative aspiration of CSF and blood and with no paresthesias, 1 mL Isovue 200 contrast dye was injected excellent epidurogram and outlining of the nerve root Subsequently, 3 mL of block solution containing 40 mg Depo-Medrol and 2 mL of 0.9% normal saline PF was injected. Needle was removed and the same procedure was repeated at the right L5-S1 level . At the end of the procedure, skin was cleansed, and bandages were applied. COMPLICATIONS:none DISPOSITION / PLANS: The patient was placed in a supine position and transferred to the recovery area in a stable condition for observation. There was no evidence of lower extremity motor or sensory deficit after the procedure. Patient was discharged from the recovery room after meeting discharge criteria. Home discharge instructions were given to the patient by the staff. The patient was reexamined prior to discharge. Patient is deaf ,and in the preop holding area patient was very anxious, for this reason we did the procedure under moderate sedation, because of patient's severe anxiety ,and is very difficult to communicate with the patient during the procedure, for this reason we started the IV and we did the procedure under moderate sedation
[2025-02-14] MEDS: IV FLUID CONTINUATION 600 ML IV ONE (12:40)
[2025-02-14 12:58] VITALS: BP 126/75; PULSE 48
--- NOTE | 2025-02-14 13:19 | FL ---
Fluoroscopy INDICATION: Pain FINDINGS: Fluoroscopy time: 15 seconds. Total dose area product (DAP) in uGy*m?, mGy*cm? (or similar): 0.74679 Images obtained: 3. Images document needle directed towards the lumbar spine IMPRESSION: 1. Documentation of fluoroscopy. [facility], , 02/14/2025 1:17 PM
== END 2025-02-14 13:09 | disposition home or self-care (01) ==
LOC: ORPAIN 11:27
PROVIDERS: ATTEND Specialist
DX: M47.26 Other spondylosis with radiculopathy, lumbar region (principal)
CPT/HCPCS: 64483; 64484; J2250; J3010; Q9966; J1010; 99152

== ENCOUNTER → 2025-03-12 | Outpatient (CLI) | payer MEDICARE, OTHER ==
[2025-03-12 11:32] VITALS: BP 124/60; PULSE 56; RESP 16; TEMP 97.8
--- NOTE | 2025-03-12 15:58 | P.PAINPG ---
PQRS Measure Charge Sheet Comment: A 60 yr old female w father & tele-neon pumper at side with a history of severe and chronic LBP secondary to radiculopathy, spondylosis with facet arthropathy without myelopathy presents today for evaluation s/p L TFESI L4-L5/ R TFESI L5- S1 #1. Pt states states she experienced 100% pain relief x 3 wks s/p procedure. Pt states pain is provoked at 1 /10 in intensity, constant, predominantly axial, achy in character w occasional radiation of pain L & R of midline. Pain is provoked by standing for periods > 15 min. Pain is alleviated by injections, PT x 6 wks in 2018, chiropractic treatments in 2021, physician guided home exercises every other day since Fall 2021, medications, topical, repositioning and rest. Oswestry axial pain score of 27. Interventional pain procedures completed include Lumbar TPIs, BL RFA L3-L5 x2 (10/13, 03/13), BL iliolumbar injections x1, L TFESI L4-L5/ R TFESI L5-S1 x1 (03/14) Patient is currently on Excedrin, BioFreeze Gel Patient denies any side effects of the medication(s), denies excessive drowsiness or sleepiness, denies suicidal ideation and reports that the current pain medication is helping to control the pain and improve activities of daily living. Patient denies any motor or sensory deficits. Patient denies any fever or night sweats, denies any change in the bowel movements or urination. Physical Examination: -Constitutional: Cooperative. Not in acute distress . - Neurologic: Cranial nerve II to XII intact. No focal neurological d eficits. - Psychatric: Alert & oriented x 3. Matching mood & appropriate affect. Judgment and insight intact. - Musculoskeletal: Cervical spine: Muscle bulk/ tone/ strength in the bilateral upper extremities normal Vertebral body tenderness to palpation over Spurling test positive Distraction test positive Facet loading test positive TTP Thoracic spine Muscle bulk / tone/ strength in the bilateral paraspinal muscles normal Vertebral body tender to palpation over Facet loading test positive TTP Lumbar spine: Motor bulk/ tone/ strength lower extremities , thigh and legs : 5/5 Deep tendon reflexes : Normal Knee Jerk. Normal Ankle Jerk . Vertebral body tenderness to palpation over L5 Ortega Test positive L L4-L5/ R L5-S1 Lumbar Facet Loading Test positive BL L4-L5, L5-S1 Straight Leg Raise: positive at 30 degrees right side/ left side Gaenslen's Test positive Sacral spine : Severe tenderness over the Sacroiliac joint: right side / left side Range of motion: Flexion of the lumbar spine <60 degrees Range of motion: Extension of the lumbar spine <20 degrees Gaenslen's Test positive right side / left side Jaiden test: positive right side / left side Thigh Thrust Test positive right side / left side Sacral Thrust Test positive right side / left side Assessment and plan: Chronic LBP secondary to radiculopathy, spondylosis with facet arthropathy without myelopathy Will manage residual pain and may RTC on an as needed basis. All questions answered. I have spent less than 30 minutes on patient care today. Dr Sneed was available by phone for the evaluation of this patient. The time was used to review the medical records including relevant urine studies and Prescription history (MAPs), review of the available imaging, evaluation and examination of the patient, coordination of care with the medical staff and if applicable referring physicians, as well as creation of the medical record PQRS Narrative: Hx Alcohol Use (MH) Yes Home Medications: Ambulatory Orders Atorvastatin [Lipitor] 10 mg PO HS 01/20/21 Escitalopram [Lexapro] 20 mg PO HS 01/20/21 QUEtiapine [SEROquel] 75 mg PO HS 01/20/21 busPIRone HCL [Buspar] 30 mg PO BID 01/20/21 traZODone HCL 100 mg PO HS 01/20/21 Famotidine [Pepcid] 20 mg PO BID 09/29/22 Aspirin EC [Ecotrin Low Dose] 81 mg PO DAILY 03/14/24 Gabapentin [Gabarone] 100 mg PO HS 01/01/25 Controlled Substance Measures - Controlled Substance Measures Is patient prescribed a controlled substance at discharge?: No
== END ==
LOC: PNWHC3 11:03
PROVIDERS: ATTEND Specialist
DX: M47.26 Other spondylosis with radiculopathy, lumbar region (principal); F12.90 Cannabis use, unspecified, uncomplicated
CPT/HCPCS: 99211